=== PATIENT | female | born 1970 | race Caucasian/White ===

== ENCOUNTER 2021-11-01 12:35 | Emergency (ER) | payer OTHER ==
--- OUTSIDE RECORDS SUMMARY | 2021-11-01 12:41 | XMS REPORT | Continuity of Care Document ---
:1970 Author Organization [facility] t Address [address] [place] [address] Care Team Providers Name Role Phone JUN VALLE Primary Care Physician Unavailable Leslie Galvin Attending Clinician Unavailable Handy Valle Attending Clinician Unavailable ALONSO Attending Clinician Unavailable Alonso BYRD Attending Clinician PAUL Attending Clinician Unavailable Paul STAFFORD Attending Clinician YUE Attending Clinician Unavailable Luis Fernando FLORES G Attending Clinician Yue OSBORNE Attending Clinician Júnior BONILLA Attending Clinician Unavailable Júnior Bonilla MD Attending Clinician CELESTE GALVIN Attending Clinician Unavailable Alok Attending Clinician Unavailable Doctor Unassigned, Name Attending Clinician Unavailable Kavon STAFFORD Attending Clinician Unknown Attending Clinician Unavailable UNKNOWN Attending Clinician Unavailable Kevin Attending Clinician Unavailable Mariana JHAVERI Attending Clinician Unavailable Kenneth STAFFORD Attending Clinician Aneharris [employer] Attending Clinician ANENE Attending Clinician Unavailable [facility] Attending Clinician Unavailable Attending Clinician Unavailable RADIOLOGY Attending Clinician Unavailable Valentina GONSALVES Attending Clinician Unavailable Jack Admitting Clinician Unavailable ALONSO Admitting Clinician Unavailable PAUL Admitting Clinician Unavailable YUE Admitting Clinician Unavailable Yue OSBORNE Admitting Clinician Júnior BONILLA Admitting Clinician Unavailable Alok Admitting Clinician Unavailable PHU Admitting Clinician Unavailable Admitting Clinician Unavailable Payers Payer Name Policy Type Policy Number Effective Date Expiration Date Júnior vincent [facility] STAR [id number] 2017 00:00:00 PLUS Problems Condition Condition Condition Status Onset Resolution Last Treating Co mments Source Name Details Category Date Date Treatment Clinician Date Morbid Morbid Disease Active 2020-06 Univers obesity obesity 2-15 [place] of [place] mass index mass index 00 Me dical of of Branch 40.0-49.9 40.0-49.9 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 acute acute 2-14 [place]y of exacerb[place] exacerb[place] Tobacco Tobacco Disease Active Univers abuse abuse 1-23 ity of 00:00: [place] [facility] Branch Lung Lung Disease Active Univers nodule nodule 6-18 ity of 00:00: [place] [facility] Lung Lung Disease Active Univers nodule nodule 6-18 ity of 00:00: [place] [facility] Polyp of Polyp of Disease Active Unive rs colon, colon, 4-17 ity of unspecifie unspecifie 00:[place] of d part of 00 Medi stephanie colon, colon, Branch unspecifie unspecifie d type d type History of History of Disease Active U nivers asthma asthma 4-17 ity of 00:00: [place] 00 Medical Branch History of History of Disease Active U nivers COPD COPD 4-17 ity of 00:00: [place] 00 Medical [place] Bipolar 2 Bipolar 2 Disease Active Uni vers disorder disorder 4-17 ity of 00:00: 00 [facility] Allergies, Adverse Reactions, Alerts Allergy Allergy Status Severity Reaction(s) Onset Inactive Treating Comm ents Source Name Type Date Date Clinician formerly [facility], [facility]–1983 DA Active SV 2020-06 [facility] line 0-30 [place] 00:00: d 00 [facility] DA Active SV Shortness of 2020-06 [facility] line breathe, 0-30 [place] hives 00:00: d 00 [facility] Active Hives Univer s line ty to 1-20 ity of adverse 00:00: [place] reaction 00 [facility] DRUG Active Hives Univers LINE INGREDI 1-20 ity of 00:00: [place] 00 [facility] No Known DA Active U 2008-0 [facility] Contrast 4-09 [place] Allergie 00:00: e s 00 Medical [place] No Known DA Active U 2009-0 [facility] Drug 4-09 [place] Allergie 00:00: e s 00 Medical [place] No Known DA Active U 2009-0 [facility] Other 4-09 [place] Allergie 00:00: e s 00 Medical [place] SHELLFIS DA Active U 2008-0 [facility] H 4-09 [place] 00:[facility]: e [facility] Social History Social Habit Start Date Stop Date Quantity Comments Source History of tobacco Cigarette Smoker University of use [facility] Exposure to Not sure [facility] SARS-CoV-2 (event) [facility] Alcohol intake 2021-09-10 2021-09-10 Current University of 00:00:00 00:00:00 non-drinker of [facility] alcohol Branch (finding) Cigarettes smoked 2017-07-01 2017-07-01 Univers ity of current (pack per 00:00:00 00:00:00 ) - Reported Branch Cigarette 2017-07-01 2017-07-01 University of pack-years 00:00:00 00:00:00 [facility] Tobacco use and 2017-07-01 2017-07-01 Never used Universit y of exposure 00:00:00 00:00:00 [facility] Sex [birth year] At [birth year] Universit y of 00:00:00 00:00:00 [facility] Smoking Status Start Date Stop Date Source Current every day smoker 2017-07-01 00:00:00 Uni versity of [facility] Medications Ordered Filled Start Stop Current Ordering Indication Dosage Frequency Signature Comments Components Source Medication Medication Date Date Medication? Clinician (SIG) Name Name dicyclomine 2021- No 20mg 20 mg, Uni vers (BENTYL) 09-11 Oral, ity of tablet 20 06:00: 05:14 ONCE, 1 [place] mg 00 :00 dose, On Medical 09/11/21 Branch at 0100, MAHNAZ ketorolac 2021- No 30mg 30 mg, Unive rs (TORADOL) 09-11 Slow IV ity of injection 06:00: 05:14 Push, [place] 30 mg 00 :00 ONCE, 1 Medical dose, On Branch 09/11/21 at 0100, MAHNAZ meclizine Yes 25mg Take 25 mg Un lori 25 mg 07-03 by mouth 3 ity of tablet 15:52: (three) [place] 01 times Medical daily as Branch needed. ipratropium 2021- No 3mL 3 mL, Univ ers -albuteroL 07-02 Inhalation it y of (DUONEB) 09:30: 08:26 , ONCE, 1 [place] 0.5 mg-3 00 :00 dose, On Medical mg(2.5 mg Fri Branch base)/3 mL 07/02/21 at nebulizer 0330, MAHNAZ solution 3 mL ipratropium 2021- No 3mL 3 mL, [facility] ers -albuteroL 07-02 Inhalation it y of (DUONEB) 09:30: 08:30 , ONCE, 1 [place] 0.5 mg-3 00 :00 dose, On Medical mg(2.5 mg Fri Branch base)/3 mL 07/02/21 at nebulizer 0330, MAHNAZ solution 3 mL methylpredn 2021- No 125mg 125 mg, U nivers isolone sod 07-02 Slow IV ity of succ 09:30: 08:26 Push, ONCE [place] (SOLU-MEDRO 00 :00 NOW, 1 Medica l L) dose, On Branch injection Fri 125 mg 07/02/21 at 0330, MAHNAZ meclizine 2021-0 Yes 25mg Take 25 mg Un lori 25 mg -21 by mouth 3 ity of tablet 03:48: (three) [place] 48 times Medical daily as Branch needed. famotidine 0 Yes 20mg Take 20 mg U nivers (PEPCID) 20 -21 by mouth 2 it y of mg tablet 02:20: (two) [place] 08 times Medical daily. Branch ipratropium 2021-0 Yes Inhale. Uni vers /albuterol -21 ity of sulfate 02:20: [place] (COMBIVENT [address] [place] [address] RESPIMAT [place] INHALE) famotidine 0 Yes 20mg Take 20 mg U nivers (PEPCID) 20 - by mouth 2 it y of mg tablet 02:20: (two) [place] 08 times Medical daily. Branch ipratropium 0 Yes Inhale. Uni vers /albuterol - ity of sulfate 02:20: [place] ([address] RESPIMAT [place] INHALE) cetirizine 2021- No 10mg Take 10 mg Univers 10 mg -07-02 by mouth ity of tablet 02:17: 00:00 daily. [place] 13 :00 Medical Branch benzonatate 2021-0 Yes [id number] 100mg Take 1 Univers 100 mg 1-21 capsule by ity of capsule 00:00: mouth 3 [place] 00 (three) Medical times [place] daily as needed for Cough. benzonatate 2021-0 Yes [id number] 100mg Take 1 Univers 100 mg 1-21 capsule by ity of capsule 00:00: mouth 3 [place] 00 (three) Medical times [place] daily as needed for Cough. predniSONE 2021-2021- No [id number] 40mg Take 2 Univers 20 mg 1-21 -27 tablets by ity of tablet 00:00: 05:59 mouth [place] 00 :00 daily for Medical 5 days. Branch predniSONE 2020-06- No [id number] 40mg Take 2 Univers 20 mg 2-17 12-23 tablets by ity of tablet 00:00: 05:59 mouth [place] 00 :00 daily for Medical 5 days. Branch famotidine 2020-06 Yes 20mg Take 20 mg U nivers (PEPCID) 20 2-16 by mouth 2 it y of mg tablet 13:45: (two) [place] 28 times Medical daily. Branch cetirizine 2020-06 Yes 10mg Take 10 mg U nivers 10 mg 2-16 by mouth ity of tablet 13:45: daily. [place] 28 Medical Branch ipratropium 2020-06 Yes Inhale. Uni vers /albuterol 2-16 ity of sulfate 13:45: [place] (COMBIVENT 28 Medical RESPIMAT Branch INHALE) amphetamine 2020-06 No 15mg Take 15 mg Univers sulfate 15 2-16 12-16 by mouth 2 it y of mg TbDL 12:18: 00:00 (two) [place] 10 :00 times Medical daily. Branch codeine-gua 2020-06 Yes [id number] 10mL Take 10 mL Univers ifenesin 2-16 by mouth ity of 10-100 mg/5 00:00: every 6 [place] mL oral 00 (six) Medical solution hours as Branch needed for Cough. Indication s: acute pain codeine-gua 2020-06- No [id number] 10mL Take 10 mL Univers ifenesin 2-16 -21 by mouth ity of 10-100 mg/5 00:00: 00:00 every 6 [place] mL oral 00 :00 (six) Medical solution hours as Branch needed for Cough. Indication s: acute pain predniSONE 2020-06 Yes 40mg 40 mg, Unive rs (DELTASONE) 2-15 Oral, ity of tablet 40 15:00: DAILY, [place] mg 00 First dose Medical on Mon Branch 05/26/21 at 0900, Until Discontinu ed, Routine enoxaparin 2020-06 Yes 40mg 40 mg, Unive rs (LOVENOX) 2-15 Subcutaneo ity of injection 15:00: [place], DAILY, [place] 40 mg 00 First dose Medical on Mon Branch 05/26/21 at 0900, Until Discontinu ed, Routine budesonide- 2020-06 Yes 2{puff} 2 Puff, Univers formoteroL 2-15 Inhalation ity of (SYMBICORT) 14:00: , BID, [place] 160-4.5 00 First dose Medica l mcg/actuati on Mon on inhaler 05/26/21 2 Puff at 0800, Until Discontinu ed, Routine codeine-gua 2020-06 Yes 5mL 5 mL, Unive rs ifenesin 2-15 Oral, ity of (ROBITUSSIN 02:50: Q6HPRN, [place] AC) 10-100 23 Starting Medic al mg/5 mL on Mon oral 05/25/21 solution 5 at 2049, mL Until Discontinu ed, Routine, Cough ipratropium 2020-06 Yes 3mL 3 mL, Unive rs -albuteroL 2-15 Inhalation ity of (DUONEB) 02:50: , QIDPRN, [place] 0.5 mg-3 09 Starting Medical mg(2.5 mg on Mon base)/3 mL 05/25/21 nebulizer at 2049, solution 3 Until mL Discontinu ed, Routine, Wheezing, Shortness of Breath, Bronchospa sm, Chest tightness ipratropium 2020-06 Yes 3mL 3 mL, Unive rs -albuteroL 2-15 Inhalation ity of (DUONEB) 02:00: , Q4H, [place] 0.5 mg-3 00 First dose Medic al mg(2.5 mg on Mon base)/3 mL 05/25/21 nebulizer at 1999, solution 3 Until mL Discontinu ed, Routine ondansetron 2020-06 Yes 4mg 4 mg, Slow Univers (ZOFRAN 2-15 IV Push, ity of (PF)) 00:55: Q6HPRN, [place] injection 4 53 Starting Medi stephanie mg on Mon05/25/21 at 1855, Until Discontinu ed, Routine, Nausea and Vomiting (N/V) HYDROcodone 2020-06 Yes 1{tbl} 1 tablet, Univers -acetaminop 2-15 Oral, ity of hen (NORCO) 00:55: Q6HPRN, [place] 10-325 mg 50 Starting Medica l tablet 1 on Mon tablet 05/25/21 at 1855, Until Discontinu ed, Routine, Pain (scale 7-10) traMADoL 2020-06 No 50mg 50 mg, Univer s (ULTRAM) 2-15 12-17 Oral, ity of tablet 50 00:55: 00:54 Q8HPRN, [place] mg 46 :46 Starting Medical on e Branch 05/25/21 at 1855, Until Erma 05/27/21 at 1854, Routine, Pain (scale 4-6) acetaminoph 2020-06 Yes 650mg 650 mg, Un lori en 07-27 Oral, ity of (TYLENOL) 00:55: Q6HPRN, [place] tablet 650 42 Starting Medic al mg on e Branch 05/25/21 at 1855, Until Discontinu ed, Routine, Pain (scale 1-3) magnesium 2020-06- No 2g 2 g, IV Univ ers sulfate in 07-26 Piggyback, it y of water 2 23:15: 00:06 Administer [place] gram/50 mL 00 :00 over 20 Medica l (4 %) Minutes, Branch infusion 2 ONCE, 1 g dose, On e 05/25/21 at 1715, Routine ipratropium 2020-06 No 3mL 3 mL, Univ ers -albuteroL 07-26 Inhalation it y of (DUONEB) 23:00: 22:22 , ONCE, 1 [place] 0.5 mg-3 00 :00 dose, On Medical mg(2.5 mg [facility] Branch base)/3 mL 05/25/21 nebulizer at 1700, solution 3 Routine mL methylpredn 2020-06- No 125mg 125 mg, IV Univers isolone sod 07-26 Piggyback, i ty of succ 23:00: 22:26 ONCE, 1 [place] (SOLU-MEDRO 00 :00 dose, On Medi stephanie L) Tue Branch injection 05/25/21 125 mg at 1700, STAT ipratropium 2020-06 Yes 3mL 3 mL, Unive rs -albuteroL 2-12 Inhalation ity of (DUONEB) 14:00: , QID, [place] 0.5 mg-3 00 First dose Medic al mg(2.5 mg on [place] Branch base)/3 mL 05/23/21 nebulizer at 0800, solution 3 Until mL Discontinu ed, Routine ipratropium 2020-06 Yes 3mL 3 mL, Unive rs -albuteroL 2-12 Inhalation ity of (DUONEB) 14:00: , QID, [place] 0.5 mg-3 00 First dose Medic al mg(2.5 mg on [facility] base)/3 mL 05/23/21 nebulizer at 0800, solution 3 Until mL Discontinu ed, Routine methylpredn 2020-06 No 125mg 125 mg, IV Univers isolone sod 2-12 12-12 Piggyback, i ty of succ 08:30: 07:28 ONCE, 1 [place] (SOLU-MEDRO 00 :00 dose, On Medi stephanie L) [place] Branch injection 05/23/21 125 mg at 0230, STAT predniSONE 2020-06 Yes [id number] 50mg Take 1 Univers 50 mg 2-12 tablet by ity of tablet 00:00: mouth [place] 00 daily. [facility] predniSONE 2020-06- No [id number] 50mg Take 1 Univers 50 mg 2-12 12-16 tablet by ity of tablet 00:00: 00:00 mouth [place] 00 :00 daily. [facility] Branch levoFLOXaci No 750mg 750 mg, U nivers n 03-01 Oral, ONCE ity of (LEVAQUIN) 22:15: 21:10 NOW, 1 [place] tablet 750 00 :00 dose, On Medic al mg [facility] 03/01/21 at 1715, MAHNAZ
Re ason for Anti-Infec tive: Documented Infection< br>Documen genie Infection Site: Respirator y
Durat ion of Therapy: 7 days levoFLOXaci No 750mg 750 mg, U nivers n 03-01 Oral, ONCE ity of (LEVAQUIN) 22:15: 21:10 NOW, 1 [place] tablet 750 00 :00 dose, On Medic al mg [facility] 03/01/21 at 1715, MAHNAZ
Re ason for Anti-Infec tive: Documented Infection< br>Documen genie Infection Site: Respirator y
Durat ion of Therapy: 7 days aspirin No 325mg 325 mg, Unive rs tablet 325 03-01 Oral, ity of mg 19:15: 21:10 ONCE, 1 [place] 00 :00 dose, On Medical [facility] 03/01/21 at 1415, STAT aspirin 2020- No 325mg 325 mg, Unive rs tablet 325 03-01- Oral, ity of mg 19:15: 21:10 ONCE, 1 [place] 00 :00 dose, On Medical Mon Branch 03/01/21 at 1415, STAT albuterol Yes [id number] 2{puff} Inhale 2 Univers 90 9-20 Puffs ity of mcg/actuati 00:00: every 4 [place] on inhaler 00 (four) Medical hours as Branch needed for Wheezing or Shortness of Breath. albuterol Yes [id number] 2{puff} Inhale 2 Univers 90 9-20 Puffs ity of mcg/actuati 00:00: every 4 [place] on inhaler 00 (four) Medical hours as Branch needed for Wheezing or Shortness of Breath. albuterol Yes [id number] 2{puff} Inhale 2 Univers 90 9-20 Puffs ity of mcg/actuati 00:00: every 4 [place] on inhaler 00 (four) Medical hours as Branch needed for Wheezing or Shortness of Breath. albuterol 2020- No [id number] 2{puff} Inhale 2 Univers 90 9-20 12-16 Puffs ity of mcg/actuati 00:00: 00:00 every 4 [place] on inhaler 00 :00 (four) Medical hours as Branch needed for Wheezing or Shortness of Breath. levoFLOXaci 2020- No [id number] 750mg Take 1 Univers n 750 mg 03-01 tablet by ity o f tablet 00:00: 04:59 mouth [place] 00 :00 every 24 Medical (twenty-fo Branch ur) hours for 7 days. levoFLOXaci 2020- No [id number] 750mg Take 1 Univers n 750 mg 03-01 tablet by ity o f tablet 00:00: 04:59 mouth [place] 00 :00 every 24 Medical (twenty-fo Branch ur) hours for 7 days. albuterol-i 2020- No [id number] 1{puff} Inhale 1 Univers pratropium 03-01 09-20 Puff 4 ity of 20-100 00:00: 00:00 (four) [place] mcg/actuati 00 :00 times Medical on inhaler daily. Branch albuterol-i 2020- No [id number] 1{puff} Inhale 1 Univers pratropium 9-20 09-20 Puff 4 ity of 20-100 00:00: 00:00 (four) [place] mcg/actuati 00 :00 times Medical on inhaler daily. Branch methylpredn 2020- No [id number] 125mg Univers isolone sod 02-23 ity of succ 23:30: 23:26 [place] (SOLU-MEDRO 00 :00 Medical L) Branch injection 125 mg methylpredn 2020- No [id number] 125mg 125 mg, Univers isolone sod 02-23 Intramuscu i ty of succ 23:30: 23:26 lar, ONCE [place] (SOLU-MEDRO 00 :00 NOW, 1 Medica l L) dose, On Branch injection Tue 125 mg 02/23/21 at 1830, Routine methylpredn No [id number] 125mg Univers isolone sod 02-23 ity of succ 23:30: 23:26 [place] (SOLU-MEDRO 00 :00 Medical L) Branch injection 125 mg methylpredn No [id number] 125mg 125 mg, Univers isolone sod 02-23 Intramuscu i ty of succ 23:30: 23:26 lar, ONCE [place] (SOLU-MEDRO 00 :00 NOW, 1 Medica l L) dose, On Branch injection Tue 125 mg 02/23/21 at 1830, Routine albuterol Yes [id number] 2{puff} Inhale 2 Univers 90 9-14 Puffs ity of mcg/actuati 00:00: every 6 [place] on inhaler 00 (six) Medical hours as Branch needed for Wheezing. Please dispense generic brand albuterol Yes [id number] 2{puff} Inhale 2 Univers 90 9-14 Puffs ity of mcg/actuati 00:00: every 6 [place] on inhaler 00 (six) Medical hours as Branch needed for Wheezing. Please dispense generic brand albuterol Yes [id number] 2{puff} Inhale 2 Univers 90 9-14 Puffs ity of mcg/actuati 00:00: every 6 [place] on inhaler 00 (six) Medical hours as Branch needed for Wheezing. Please dispense generic brand albuterol Yes [id number] 2{puff} Inhale 2 Univers 90 9-14 Puffs ity of mcg/actuati 00:00: every 6 [place] on inhaler 00 (six) Medical hours as Branch needed for Wheezing. Please dispense generic brand albuterol Yes [id number] 2{puff} Inhale 2 Univers 90 9-14 Puffs ity of mcg/actuati 00:00: every 6 [place] on inhaler 00 (six) Medical hours as Branch needed for Wheezing. Please dispense generic brand albuterol Yes [id number] 2{puff} Inhale 2 Univers 90 9-14 Puffs ity of mcg/actuati 00:00: every 6 [place] on inhaler 00 (six) Medical hours as Branch needed for Wheezing. Please dispense generic brand albuterol Yes [id number] 2{puff} Inhale 2 Univers 90 9-14 Puffs ity of mcg/actuati 00:00: every 6 [place] on inhaler 00 (six) Medical hours as Branch needed for Wheezing. Please dispense generic brand albuterol 2020- No [id number] 2{puff} Inhale 2 Univers 90 9-14 12-16 Puffs ity of mcg/actuati 00:00: 00:00 every 6 [place] on inhaler 00 :00 (six) Medical hours as Branch needed for Wheezing. Please dispense generic brand benzonatate 2020- No [id number] 100mg Take 1 Univers (TESSALON 9-14 09-25 capsule by itrob of STACEY) 100 00:00: 04:59 mouth 3 [place] mg capsule 00 :00 (three) Medica l times Branch daily as needed for Cough for up to 10 days. benzonatate 2020- No [id number] 100mg Take 1 Univers (TESSALON 9-14 09-25 capsule by itrob of STACEY) 100 00:00: 04:59 mouth 3 [place] mg capsule 00 :00 (three) Medica l times Branch daily as needed for Cough for up to 10 days. benzonatate 2020- No [id number] 100mg Take 1 Univers (TESSALON 9-14 -25 capsule by ity of STACEY) 100 00:00: 04:59 mouth 3 [place] mg capsule 00 :00 (three) Medica l times Branch daily as needed for Cough for up to 10 days. benzonatate 2020- No [id number] 100mg Take 1 Univers (TESSALON 9-14 -25 capsule by ity of ANTOINE) 100 00:00: 04:59 mouth 3 [place] mg capsule 00 :00 (three) Medica l times Branch daily as needed for Cough for up to 10 days. benzonatate 2020- No [id number] 100mg Take 1 Univers (TESSALON 9-14 -25 capsule by itrob of STACEY) 100 00:00: 04:59 mouth 3 [place] mg capsule 00 :00 (three) Medica l times Branch daily as needed for Cough for up to 10 days. benzonatate No [id number] 100mg Take 1 Univers (TESSALON 9-14 -25 capsule by itrob of STACEY) 100 00:00: 04:59 mouth 3 [place] mg capsule 00 :00 (three) Medica l times Branch daily as needed for Cough for up to 10 days. predniSONE 2020-2020- No [id number] 20mg Take 1 Univers 20 mg 9-14 -22 tablet by ity of tablet 00:00: 04:59 mouth [place] 00 :00 daily for Medical 7 days. Branch predniSONE 2020- No [id number] 20mg Take 1 Univers 20 mg 9-14 -22 tablet by ity of tablet 00:00: 04:59 mouth [place] 00 :00 daily for Medical 7 days. Branch predniSONE 2020- No [id number] 20mg Take 1 Univers 20 mg 9-14 -22 tablet by ity of tablet 00:00: 04:59 mouth [place] 00 :00 daily for Medical 7 days. Branch predniSONE 2020- No [id number] 20mg Take 1 Univers 20 mg 9-14 -22 tablet by ity of tablet 00:00: 04:59 mouth [place] 00 :00 daily for Medical 7 days. Branch predniSONE 2020- No [id number] 20mg Take 1 Univers 20 mg 02-23 tablet by ity of tablet 00:00: 04:59 mouth [place] 00 :00 daily for Medical 7 days. Branch predniSONE 2020- No [id number] 20mg Take 1 Univers 20 mg 02-23 tablet by ity of tablet 00:00: 04:59 mouth [place] 00 :00 daily for Medical 7 days. Branch azithromyci 2020- No [id number] 250mg Take 1 Univers n 02-23 tablet by ity of (ZITHROMAX 00:00: 04:59 mouth [place] Z-ANITRA) 250 00 :00 SEE-INSTRU Med ical mg tablet CTIONS for Bran ch 5 days. Please dispense a z pack azithromyci No [id number] 250mg Take 1 Univers n 02-23 tablet by ity of (ZITHROMAX 00:00: 04:59 mouth [place] Z-ANITRA) 250 00 :00 SEE-INSTRU Med ical mg tablet CTIONS for Bran ch 5 days. Please dispense a z pack cephALEXin 2019- No [id number] 500mg Take 1 Univers (KEFLEX) 03-08 capsule by ity of 500 mg 00:00: 04:59 mouth 4 [place] capsule 00 :00 (four) Medical times [place] daily for 5 days. levoFLOXaci 2019- No [id number] 750mg Take 1 Univers n 03-08 tablet by ity of (LEVAQUIN) 00:00: 04:59 mouth [place] 750 mg 00 :00 every 24 Medical tablet (twenty-fo Branch ur) hours for 5 days. cephALEXin 2019- No [id number] 500mg Take 1 Univers (KEFLEX) 03-08 capsule by ity of 500 mg 00:00: 04:59 mouth 4 [place] capsule 00 :00 (four) Medical times [place] daily for 5 days. levoFLOXaci 2019- No [id number] 750mg Take 1 Univers n 9-27 10-03 tablet by ity of (LEVAQUIN) 00:00: 04:59 mouth [place] 750 mg 00 :00 every 24 Medical tablet (twenty-fo Branch ur) hours for 5 days. bromphenira 2019- No [id number] 5mL Take 5 mL Univers mine-pseudo 09-15-17 by mouth 4 i ty of ephedrine-D 00:00: 04:59 (four) [place] M (BROMFED 00 :00 times Medical DM) 2-30-10 daily as Bran ch mg/5 mL needed for syrup Cough for up to 10 days. bromphenira 2019- No [id number] 5mL Take 5 mL Univers mine-pseudo 09-1517 by mouth 4 i ty of ephedrine-D 00:00: 04:59 (four) [place] M (BROMFED 00 :00 times Medical DM) 2-30-10 daily as Bran ch mg/5 mL needed for syrup Cough for up to 10 days. bromphenira 2019-2019- No [id number] 5mL Take 5 mL Univers mine-pseudo 09-1517 by mouth 4 i ty of ephedrine-D 00:00: 04:59 (four) [place] M (BROMFED 00 :00 times Medical DM) 2-30-10 daily as Bran ch mg/5 mL needed for syrup Cough for up to 10 days. amoxicillin No [id number] 1{tbl} Take 1 Univers -clavulanat -11 13-14 tablet by it y of e 00:00: 04:59 mouth 2 [place] (AUGMENTIN) 00 :00 (two) Medical 875-125 mg times Branch per tablet daily for 7 days. amoxicillin No [id number] 1{tbl} Take 1 Univers -clavulanat -11 13-14 tablet by it y of e 00:00: 04:59 mouth 2 [place] (AUGMENTIN) 00 :00 (two) Medical 875-125 mg times Branch per tablet daily for 7 days. amoxicillin No [id number] 1{tbl} Take 1 Univers -clavulanat 4-11 13-14 tablet by it y of e 00:00: 04:59 mouth 2 [place] (AUGMENTIN) 00 :00 (two) Medical 875-125 mg times Branch per tablet daily for 7 days. TRELEGY 2020-0 Yes Univers ELLIPTA 3-10 ity of 100-62.5-25 00:00: [place] mcg DsDv 00 Medical Branch TRELEGY 2020-0 Yes Univers ELLIPTA 3-10 ity of 100-62.5-25 00:00: [place] mcg DsDv 00 Medical Branch TRELEGY 2020-0 Yes Univers ELLIPTA 3-10 ity of 100-62.5-25 00:00: [place] mcg DsDv 00 Medical Branch TRELEGY 2020-0 Yes Univers ELLIPTA 3-10 ity of 100-62.5-25 00:00: [place] mcg DsDv 00 Medical Branch TRELEGY 2020-0 Yes Univers ELLIPTA 3-10 ity of 100-62.5-25 00:00: [place] mcg DsDv 00 Medical Branch TRELEGY 2020-0 Yes Univers ELLIPTA 3-10 ity of 100-62.5-25 00:00: [place] mcg DsDv 00 Medical Branch TRELEGY 2020-0 Yes Univers ELLIPTA 3-10 ity of 100-62.5-25 00:00: [place] mcg DsDv 00 Medical Branch TRELEGY 2020-0 Yes Univers ELLIPTA 3-10 ity of 100-62.5-25 00:00: [place] mcg DsDv 00 Medical Branch TRELEGY 2020-0 Yes Univers ELLIPTA 3-10 ity of 100-62.5-25 00:00: [place] mcg DsDv 00 Medical Branch TRELEGY 2020-0 Yes Univers ELLIPTA 3-10 ity of 100-62.5-25 00:00: [place] mcg DsDv 00 Medical Branch TRELEGY 2020-0 Yes Univers ELLIPTA 3-10 ity of 100-62.5-25 00:00: [place] mcg DsDv 00 Medical Branch TRELEGY 2020-0 Yes Univers ELLIPTA 3-10 ity of 100-62.5-25 00:00: [place] mcg DsDv 00 Medical Branch TRELEGY 2020-0 Yes Univers ELLIPTA 3-10 ity of 100-62.5-25 00:00: [place] mcg DsDv 00 Medical Branch TRELEGY 2020-0 2021- No Univers ELLIPTA 3-10 01-21 ity of 100-62.5-25 00:00: 00:00 [place] mcg DsDv 00 :00 Medical Branch montelukast 2020-0 Yes Univer s 10 mg 2-12 ity of tablet 00:00: [place] [facility] montelukast 2020-0 Yes Univer s 10 mg 2-12 ity of tablet 00:00: [place] [address] [facility] montelukast 2020-0 Yes Univer s 10 mg 2-12 ity of tablet 00:00: [place] [address] [facility] montelukast 2020-0 Yes Univer s 10 mg 2-12 ity of tablet 00:00: [place] [address] [facility] montelukast 2020-0 Yes Univer s 10 mg 2-12 ity of tablet 00:00: [place] [address] [facility] montelukast 2020-0 Yes Univer s 10 mg 2-12 ity of tablet 00:00: [place] [address] Medical [place] montelukast 2019-0 Yes Univer s 10 mg 2-12 ity of tablet 00:00: [address] montelukast 2019-0 Yes Univer s 10 mg 2-12 ity of tablet 00:00: [address] montelukast 2020-0 Yes Univer s 10 mg 2-12 ity of tablet 00:00: [address] montelukast 2020-0 Yes Univer s 10 mg 2-12 ity of tablet 00:00: [place] [address] Medical [place] montelukast 2020-0 Yes Univer s 10 mg 2-12 ity of tablet 00:00: [address] montelukast 2019-0 Yes 10mg Take 10 mg [facility] 10 mg 2-12 by mouth ity of tablet 00:00: daily. [address] montelukast 2020-0 Yes 10mg Take 10 mg [facility] 10 mg 2-12 by mouth ity of tablet 00:00: daily. [address] montelukast 2020-0 Yes 10mg Take 10 mg [facility] 10 mg 2-12 by mouth ity of tablet 00:00: daily. [address] montelukast 2019-0 Yes Univer s 10 mg 2-12 ity of tablet 00:00: [address] buPROPion 2018-0 Yes [id number] 150mg Take 1 U nivers SR 9-26 tablet by ity of (WELLBUTRIN 00:00: mouth 2 [place] SR) 150 mg 00 (two) Medical SR tablet times Branch daily. naproxen 2018-0 Yes [id number] 550mg Take 1 [facility] sodium 9-26 9106 tablet by ity of (ANAPROX 00:00: mouth 2 [place] DS) 550 mg 00 (two) Medical tablet times Branch daily with meals. buPROPion 2018-0 Yes [id number] 150mg Take 1 U nivers SR 9-26 tablet by ity of (WELLBUTRIN 00:00: mouth 2 [place] SR) 150 mg 00 (two) Medical SR tablet times Branch daily. naproxen Yes [id number] 550mg Take 1 [facility] sodium 9-26 9106 tablet by ity of (ANAPROX 00:00: mouth 2 [place] DS) 550 mg 00 (two) Medical tablet times Branch daily with meals. methylPREDN Yes [id number] 84mg Take 21 [facility] ISolone 9-26 9106 tablets by ity of (MEDROL, 00:00: mouth [place] ANITRA,) 4 mg 00 SEE-INSTRU Med ical tablets CTIONS. Branch follow package directions buPROPion 2018- Yes [id number] 150mg Take 1 U nivers SR 9-26 tablet by ity of (WELLBUTRIN 00:00: mouth 2 [place] SR) 150 mg 00 (two) Medical SR tablet times Branch daily. naproxen Yes [id number] 550mg Take 1 [facility] sodium 9-26 9106 tablet by ity of (ANAPROX 00:00: mouth 2 [place] DS) 550 mg 00 (two) Medical tablet times Branch daily with meals. methylPREDN 2018- Yes [id number] 84mg Take 21 [facility] ISolone 9-26 9106 tablets by ity of (MEDROL, 00:00: mouth [place] ANITRA,) 4 mg 00 SEE-INSTRU Med ical tablets CTIONS. Branch follow package directions buPROPion 2018-0 Yes [id number] 150mg Take 1 U nivers SR 9-26 tablet by ity of (WELLBUTRIN 00:00: mouth 2 [place] SR) 150 mg 00 (two) Medical SR tablet times Branch daily. naproxen 2018-0 Yes [id number] 550mg Take 1 [facility] sodium 9-26 9106 tablet by ity of (ANAPROX 00:00: mouth 2 [place] DS) 550 mg 00 (two) Medical tablet times Branch daily with meals. methylPREDN 2018-0 Yes [id number] 84mg Take 21 [facility] ISolone 9-26 9106 tablets by ity of (MEDROL, 00:00: mouth [place] ANITRA,) 4 mg 00 SEE-INSTRU Med ical tablets CTIONS. Branch follow package directions buPROPion 2018-0 Yes [id number] 150mg Take 1 U nivers SR 9-26 tablet by ity of (WELLBUTRIN 00:00: mouth 2 [place] SR) 150 mg 00 (two) Medical SR tablet times Branch daily. naproxen Yes [id number] 550mg Take 1 [facility] sodium 9-26 9106 tablet by ity of (ANAPROX 00:00: mouth 2 [place] DS) 550 mg 00 (two) Medical tablet times Branch daily with meals. methylPREDN Yes [id number] 84mg Take 21 [facility] ISolone 9-26 9106 tablets by ity of (MEDROL, 00:00: mouth [place] ANITRA,) 4 mg 00 SEE-INSTRU Med ical tablets CTIONS. Branch follow package directions buPROPion Yes [id number] 150mg Take 1 U nivers SR 9-26 tablet by ity of (WELLBUTRIN 00:00: mouth 2 [place] SR) 150 mg 00 (two) Medical SR tablet times Branch daily. naproxen Yes [id number] 550mg Take 1 [facility] sodium 9-26 9106 tablet by ity of (ANAPROX 00:00: mouth 2 [place] DS) 550 mg 00 (two) Medical tablet times Branch daily with meals. methylPREDN 2018- Yes [id number] 84mg Take 21 [facility] ISolone 9-26 9106 tablets by ity of (MEDROL, 00:00: mouth [place] ANITRA,) 4 mg 00 SEE-INSTRU Med ical tablets CTIONS. Branch follow package directions buPROPion 2018-0 Yes [id number] 150mg Take 1 U nivers SR 9-26 tablet by ity of (WELLBUTRIN 00:00: mouth 2 [place] SR) 150 mg 00 (two) Medical SR tablet times Branch daily. naproxen 0 Yes [id number] 550mg Take 1 [facility] sodium 9-26 9106 tablet by ity of (ANAPROX 00:00: mouth 2 [place] DS) 550 mg 00 (two) Medical tablet times Branch daily with meals. methylPREDN 2018-0 Yes [id number] 84mg Take 21 [facility] ISolone 9-26 9106 tablets by ity of (MEDROL, 00:00: mouth [place] ANITRA,) 4 mg 00 SEE-INSTRU Med ical tablets CTIONS. Branch follow package directions buPROPion Yes [id number] 150mg Take 1 U nivers SR 9-26 tablet by ity of (WELLBUTRIN 00:00: mouth 2 [place] SR) 150 mg 00 (two) Medical SR tablet times Branch daily. naproxen Yes [id number] 550mg Take 1 [facility] sodium 9-26 9106 tablet by ity of (ANAPROX 00:00: mouth 2 [place] DS) 550 mg 00 (two) Medical tablet times Branch daily with meals. buPROPion Yes [id number] 150mg Take 1 U nivers SR 9-26 tablet by ity of (WELLBUTRIN 00:00: mouth 2 [place] SR) 150 mg 00 (two) Medical SR tablet times Branch daily. naproxen Yes [id number] 550mg Take 1 [facility] sodium 9-26 9106 tablet by ity of (ANAPROX 00:00: mouth 2 [place] DS) 550 mg 00 (two) Medical tablet times Branch daily with meals. buPROPion Yes [id number] 150mg Take 1 U nivers SR 9-26 tablet by ity of (WELLBUTRIN 00:00: mouth 2 [place] SR) 150 mg 00 (two) Medical SR tablet times Branch daily. naproxen Yes [id number] 550mg Take 1 [facility] sodium 9-26 9106 tablet by ity of (ANAPROX 00:00: mouth 2 [place] DS) 550 mg 00 (two) Medical tablet times Branch daily with meals. buPROPion Yes [id number] 150mg Take 1 U nivers SR 9-26 tablet by ity of (WELLBUTRIN 00:00: mouth 2 [place] SR) 150 mg 00 (two) Medical SR tablet times Branch daily. naproxen Yes [id number] 550mg Take 1 U nivers sodium 9-26 tablet by ity of (ANAPROX 00:00: mouth 2 [place] DS) 550 mg 00 (two) Medical tablet times Branch daily with meals. buPROPion Yes [id number] 150mg Take 1 U nivers SR 9-26 tablet by ity of (WELLBUTRIN 00:00: mouth 2 [place] SR) 150 mg 00 (two) Medical SR tablet times Branch daily. naproxen Yes [id number] 550mg Take 1 [facility] sodium 9-26 9106 tablet by ity of (ANAPROX 00:00: mouth 2 [place] DS) 550 mg 00 (two) Medical tablet times Branch daily with meals. buPROPion Yes [id number] 150mg Take 1 U nivers SR 9-26 tablet by ity of (WELLBUTRIN 00:00: mouth 2 [place] SR) 150 mg 00 (two) Medical SR tablet times Branch daily. buPROPion Yes [id number] 150mg Take 1 U nivers SR 9-26 tablet by ity of (WELLBUTRIN 00:00: mouth 2 [place] SR) 150 mg 00 (two) Medical SR tablet times Branch daily. naproxen Yes [id number] 550mg Take 1 [facility] sodium 9-26 9106 tablet by ity of (ANAPROX 00:00: mouth 2 [place] DS) 550 mg 00 (two) Medical tablet times Branch daily with meals. buPROPion 2021- No [id number] 150mg Take 1 [facility] SR 9-07 07-21 tablet by ity of (WELLBUTRIN 00:00: 00:00 mouth 2 [place] SR) 150 mg 00 :00 (two) Medical SR tablet times Branch daily. naproxen 2020- No [id number] 550mg Take 1 [facility] sodium 9- 12-14 tablet by ity of (ANAPROX 00:00: 00:00 mouth 2 [place] DS) 550 mg 00 :00 (two) Medical tablet times Branch daily with meals. methylPREDN 2020- No [id number] 84mg Take 21 [facility] ISolone 03-07-14 9106 tablets by ity o f (MEDROL, 00:00: 00:00 mouth [place] ANITRA,) 4 mg 00 :00 SEE-INSTRU Med ical tablets CTIONS. Branch follow package directions methylPREDN 2020- No [id number] 84mg Take 21 [facility] ISolone 03-07 09-14 9106 tablets by ity o f (MEDROL, 00:00: 00:00 mouth [place] ANITRA,) 4 mg 00 :00 SEE-INSTRU Med ical tablets CTIONS. Branch follow package directions loratadine- Yes [id number] 1{tbl} Take 1 [facility] pseudoephed 4-17 tablet by ity of rine 00:00: mouth [place] (CLARITIN-D 00 daily. Medica l 24 HOUR) Branch 10-240 mg per 24 hr tablet azithromyci 2018-0 Yes [id number] 250mg Take 1 [facility] n 4-17 tablet by ity of (ZITHROMAX 00:00: mouth [place] Z-ANITRA) 250 00 SEE-INSTRU Med ical mg tablet CTIONS. Branch Take 500 mg day 1, then 250 mg days 2 to 5. dextrometho 2018- Yes [id number] 10mL Take 10 mL [facility] rphan-guaif 4-17 by mouth ity of enesin 00:00: every 6 [place] 10-100 mg/5 00 (six) Medical mL solution hours as Bran ch needed for Cough. loratadine- Yes [id number] 1{tbl} Take 1 [facility] pseudoephed 4-17 tablet by ity of rine 00:00: mouth [place] (CLARITIN-D 00 daily. Medica l 24 HOUR) Branch 10-240 mg per 24 hr tablet azithromyci 2018- Yes [id number] 250mg Take 1 [facility] n 4-17 tablet by ity of (ZITHROMAX 00:00: mouth [place] Z-ANITRA) 250 00 SEE-INSTRU Med ical mg tablet CTIONS. Branch Take 500 mg day 1, then 250 mg days 2 to 5. loratadine- Yes [id number] 1{tbl} Take 1 [facility] pseudoephed 4-17 tablet by ity of rine 00:00: mouth [place] (CLARITIN-D 00 daily. Medica l 24 HOUR) Branch 10-240 mg per 24 hr tablet azithromyci 2018- Yes [id number] 250mg Take 1 [facility] n 4-17 tablet by ity of (ZITHROMAX 00:00: mouth [place] Z-ANITRA) 250 00 SEE-INSTRU Med ical mg tablet CTIONS. Branch Take 500 mg day 1, then 250 mg days 2 to 5. loratadine- Yes [id number] 1{tbl} Take 1 [facility] pseudoephed 4-17 tablet by ity of rine 00:00: mouth [place] (CLARITIN-D 00 daily. Medica l 24 HOUR) Branch 10-240 mg per 24 hr tablet azithromyci 2019-0 Yes [id number] 250mg Take 1 [facility] n 4-17 tablet by ity of (ZITHROMAX 00:00: mouth [place] Z-ANITRA) 250 00 SEE-INSTRU Med ical mg tablet CTIONS. Branch Take 500 mg day 1, then 250 mg days 2 to 5. loratadine- 2019- Yes [id number] 1{tbl} Take 1 [facility] pseudoephed 4-17 tablet by ity of rine 00:00: mouth [place] (CLARITIN-D 00 daily. Medica l 24 HOUR) Branch 10-240 mg per 24 hr tablet loratadine- 2018- Yes [id number] 1{tbl} Take 1 [facility] pseudoephed 4-17 tablet by ity of rine 00:00: mouth [place] (CLARITIN-D 00 daily. Medica l 24 HOUR) Branch 10-240 mg per 24 hr tablet loratadine- 2018- Yes [id number] 1{tbl} Take 1 [facility] pseudoephed 4-17 tablet by ity of rine 00:00: mouth [place] (CLARITIN-D 00 daily. Medica l 24 HOUR) Branch 10-240 mg per 24 hr tablet loratadine- 2018- Yes [id number] 1{tbl} Take 1 [facility] pseudoephed 4-17 tablet by ity of rine 00:00: mouth [place] (CLARITIN-D 00 daily. Medica l 24 HOUR) Branch 10-240 mg per 24 hr tablet loratadine- 2019-0 Yes [id number] 1{tbl} Take 1 [facility] pseudoephed 4-17 tablet by ity of rine 00:00: mouth [place] (CLARITIN-D 00 daily. Medica l 24 HOUR) Branch 10-240 mg per 24 hr tablet loratadine- 2019-0 Yes [id number] 1{tbl} Take 1 [facility] pseudoephed 4-17 tablet by ity of rine 00:00: mouth [place] (CLARITIN-D 00 daily. Medica l 24 HOUR) Branch 10-240 mg per 24 hr tablet loratadine- 2019-0 Yes [id number] 1{tbl} Take 1 [facility] pseudoephed 4-17 tablet by ity of rine 00:00: mouth [place] (CLARITIN-D 00 daily. Medica l 24 HOUR) Branch 10-240 mg per 24 hr tablet loratadine- 2018- Yes [id number] 1{tbl} Take 1 [facility] pseudoephed 4-17 tablet by ity of rine 00:00: mouth [place] (CLARITIN-D 00 daily. Medica l 24 HOUR) Branch 10-240 mg per 24 hr tablet loratadine- Yes [id number] 1{tbl} Take 1 [facility] pseudoephed 4-17 tablet by ity of rine 00:00: mouth [place] (CLARITIN-D 00 daily. Medica l 24 HOUR) Branch 10-240 mg per 24 hr tablet loratadine- 2020- No [id number] 1{tbl} Take 1 [facility] pseudoephed 4-17 12-14 tablet by it y of rine 00:00: 00:00 mouth [place] (CLARITIN-D 00 :00 daily. Medica l 24 HOUR) Branch 10-240 mg per 24 hr tablet azithromyci 2020- No [id number] 250mg Take 1 [facility] n 4-17 -27 tablet by ity of (ZITHROMAX 00:00: 00:00 mouth [place] Z-ANITRA) 250 00 :00 SEE-INSTRU Med ical mg tablet CTIONS. Branch Take 500 mg day 1, then 250 mg days 2 to 5. dextrometho 2020- No [id number] 10mL Take 10 mL [facility] rphan-guaif 4-17 04-06 by mouth ity of enesin 00:00: 00:00 every 6 [place] 10-100 mg/5 00 :00 (six) Medical mL solution hours as Bran ch needed for Cough. levoFLOXaci Yes [id number] 500mg Take 1 Univers n 2-05 tablet by ity of (LEVAQUIN) 00:00: mouth [place] 500 mg 00 every 24 Medical tablet (twenty-fo Branch ur) hours. levoFLOXaci Yes [id number] 500mg Take 1 [facility] n 2-05 tablet by ity of (LEVAQUIN) 00:00: mouth [place] 500 mg 00 every 24 Medical tablet (twenty-fo Branch ur) hours. levoFLOXaci Yes [id number] 500mg Take 1 [facility] n 2-05 tablet by ity of (LEVAQUIN) 00:00: mouth [place] 500 mg 00 every 24 Medical tablet (twenty-fo Branch ur) hours. levoFLOXaci Yes [id number] 500mg Take 1 [facility] n 2-05 tablet by ity of (LEVAQUIN) 00:00: mouth [place] 500 mg 00 every 24 Medical tablet ([facility] ur) hours. levoFLOXaci Yes [id number] 500mg Take 1 Univers n 2-05 tablet by ity of (LEVAQUIN) 00:00: mouth [place] 500 mg 00 every 24 Medical tablet ([facility] ur) hours. levoFLOXaci Yes [id number] 500mg Take 1 Univers n 2-05 tablet by ity of (LEVAQUIN) 00:00: mouth [place] 500 mg 00 every 24 Medical tablet ([facility] ur) hours. levoFLOXaci 2020- No [id number] 500mg Take 1 Univers n 2-05 09-14 tablet by ity of (LEVAQUIN) 00:00: 00:00 mouth [place] 500 mg 00 :00 every 24 Medical tablet ([facility] ur) hours. levoFLOXaci 2020- No [id number] 500mg Take 1 Univers n 2-05 09-14 tablet by ity of (LEVAQUIN) 00:00: 00:00 mouth [place] 500 mg 00 :00 every 24 Medical tablet ([facility] ur) hours. azithromyci 2018- Yes [id number] 500mg Take 1 Univers n 500 mg 1-25 tablet by ity of tablet 00:00: mouth [place] 00 daily. Medical Branch azithromyci 2018-0 Yes [id number] 500mg Take 1 Univers n 500 mg 1-25 tablet by ity of tablet 00:00: mouth [place] 00 daily. [facility] Branch azithromyci 2018-0 Yes [id number] 500mg Take 1 Univers n 500 mg 1-25 tablet by ity of tablet 00:00: mouth [place] 00 daily. Medical Branch azithromyci 2018-0 Yes [id number] 500mg Take 1 Univers n 500 mg 1-25 tablet by ity of tablet 00:00: mouth [place] 00 daily. [facility] Branch azithromyci 2018-0 Yes [id number] 500mg Take 1 Univers n 500 mg 1-25 tablet by ity of tablet 00:00: mouth [place] 00 daily. [facility] Branch azithromyci 2019-0 Yes [id number] 500mg Take 1 Univers n 500 mg 1-25 tablet by ity of tablet 00:00: mouth [place] 00 daily. Medical Branch azithromyci 2018-2020- No [id number] 500mg Take 1 Univers n 500 mg 1-25 -14 tablet by ity o f tablet 00:00: 00:00 mouth [place] 00 :00 daily. Medical Branch azithromyci 2018-2020- No [id number] 500mg Take 1 Univers n 500 mg 1-25 -14 tablet by ity o f tablet 00:00: 00:00 mouth [place] 00 :00 daily. Medical Branch nystatin 2019- Yes [id number] Take 3 mL [facility] 100,000 1-23 by mouth 4 ity of unit/mL 00:00: (four) [place] suspension 00 times Medical daily. 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 Branch Scrub around mouth inhalationa 2019-0 Yes [id number] May U nivers l spacing 1-23 substitute ity of device 00:00: other [place] 00 spacing layboy tender Branch predniSONE 2019-0 Yes [id number] 2 tabs now Univers 20 mg 1-23 and 2 tabs ity of tablet 00:00: early each [place] morning Medical for total Branch of 5 doses. nystatin 2019- Yes [id number] Take 3 mL [facility] 100,000 1-23 by mouth 4 ity of unit/mL 00:00: (four) [place] suspension 00 times Medical daily. Branch Scrub around mouth inhalationa 2019-0 Yes [id number] May U nivers l spacing 1-23 substitute ity of device 00:00: other [place] 00 spacing layboy tender Branch predniSONE 2019-0 Yes [id number] 2 tabs now [facility] 20 mg 1-23 and 2 tabs ity of tablet 00:00: early each [place] 00 morning Medical for total Branch of 5 doses. nystatin 2019- Yes [id number] Take 3 mL [facility] 100,000 1-23 by mouth 4 ity of unit/mL 00:00: (four) [place] suspension 00 times Medical daily. Branch Scrub around mouth inhalationa 2019-0 Yes [id number] May U nivers l spacing 1-23 substitute ity of device 00:00: other [place] 00 spacing layboy tender Branch predniSONE 2019-0 Yes [id number] 2 tabs now [facility] 20 mg 1-23 and 2 tabs ity of tablet 00:00: early each morning Medical for total Branch of 5 doses. nystatin 2019-0 Yes [id number] Take 3 mL [facility] 100,000 1-23 by mouth 4 ity of unit/mL 00:00: (four) [place] suspension 00 times Medical daily. Branch Scrub around mouth inhalationa 2019-0 Yes [id number] May U nivers l spacing 1-23 substitute ity of device 00:00: other 00 spacing [place] tender Branch predniSONE 2019-0 Yes [id number] 2 tabs now [facility] 20 mg 1-23 and 2 tabs ity of tablet 00:00: early each [place] morning Medical for total Branch of 5 doses. nystatin 2019-0 Yes [id number] Take 3 mL [facility] 100,000 1-23 by mouth 4 ity of unit/mL 00:00: (four) [place] suspension 00 times Medical daily. Branch Scrub around mouth inhalationa 2019-0 Yes [id number] May U nivers l spacing 1-23 substitute ity of device 00:00: other 00 spacing [place] tender Branch predniSONE 2019-0 Yes [id number] 2 tabs now Univers 20 mg 1-23 and 2 tabs ity of tablet 00:00: early each [place] morning Medical for total Branch of 5 doses. nystatin 2019-0 Yes [id number] Take 3 mL [facility] 100,000 1-23 by mouth 4 ity of unit/mL 00:00: (four) [place] suspension 00 times Medical daily. Branch Scrub around mouth inhalationa 2019-0 Yes [id number] May U nivers l spacing 1-23 substitute ity of device 00:00: other 00 spacing [place]boy tender Branch predniSONE 2019-0 Yes [id number] 2 tabs now [facility] 20 mg 1-23 and 2 tabs ity of tablet 00:00: early each morning Medical for total Branch of 5 doses. nystatin 2019-0 Yes [id number] Take 3 mL [facility] 100,000 1-23 by mouth 4 ity of unit/mL 00:00: (four) [place] suspension 00 times Medical daily. Branch Scrub around mouth inhalationa 2019-0 Yes [id number] May U nivers l spacing 1-23 substitute ity of device 00:00: other [place] 00 spacing layboy tender Branch nystatin 2019-0 Yes [id number] Take 3 mL [facility] 100,000 1-23 by mouth 4 ity of unit/mL 00:00: (four) [place] suspension 00 times Medical daily. Branch Scrub around mouth inhalationa 2019-0 Yes [id number] May U nivers l spacing 1-23 substitute ity of device 00:00: other [place] 00 spacing layboy tender Branch nystatin 2019-0 Yes [id number] Take 3 mL [facility] 100,000 1-23 by mouth 4 ity of unit/mL 00:00: (four) [place] suspension 00 times Medical daily. Branch Scrub around mouth inhalationa 2019-0 Yes [id number] May U nivers l spacing 1-23 substitute ity of device 00:00: other [place] 00 spacing layboy tender Branch nystatin 2019-0 Yes [id number] Take 3 mL [facility] 100,000 1-23 by mouth 4 ity of unit/mL 00:00: (four) [place] suspension 00 times Medical daily. Branch Scrub around mouth inhalationa 2019-0 Yes [id number] May U nivers l spacing 1-23 substitute ity of device 00:00: other [place] spacing layboy tender Branch nystatin 2019-0 Yes [id number] Take 3 mL [facility] 100,000 1-23 by mouth 4 ity of unit/mL 00:00: (four) [place] suspension 00 times Medical daily. Branch Scrub around mouth inhalationa 2019-0 Yes [id number] May U nivers l spacing 1-23 substitute ity of device 00:00: other spacing [place] tender Branch inhalationa 2019-0 Yes [id number] May U nivers l spacing 1-23 substitute ity of device 00:00: other [place] spacing layboy tender Branch inhalationa 2019-0 Yes [id number] May U nivers l spacing 1-23 substitute ity of device 00:00: other spacing [place] tender Branch inhalationa 2019-0 Yes [id number] May U nivers l spacing 1-23 substitute ity of device 00:00: other [place] 00 spacing layboy tender Branch nystatin Yes [id number] Take 3 mL [facility] 100,000 23 by mouth 4 ity of unit/mL 00:00: (four) [place] suspension 00 times Medical daily. Branch Scrub around mouth inhalationa Yes [id number] May U nivers l spacing 1-23 substitute ity of device 00:00: other 00 spacing layboy tender Branch nystatin 2020- No [id number] Take 3 mL [facility] 100,000 07-04 12-14 by mouth 4 ity o f unit/mL 00:00: 00:00 (four) [place] suspension 00 :00 times Medical daily. Branch Scrub around mouth predniSONE 2020- No [id number] 2 tabs now [facility] 20 mg 07-0414 and 2 tabs ity of tablet 00:00: 00:00 early [place] 00 :[place] morning Medical for total Branch of 5 doses. predniSONE 2020- No [id number] 2 tabs now [facility] 20 mg 07-0414 and 2 tabs ity of tablet 00:00: 00:00 early each [place] 00 :[place] morning Medical for total Branch of 5 doses. VENTOLIN 2017-06 Yes [id number] 2{puff} Inhale 2 Univers HFA 90 2-03 Puffs ity of mcg/actuati 00:00: every 6 [place] on inhaler 00 (six) Medical hours as Branch needed for Wheezing or Shortness of Breath. VENTOLIN 2017-06 Yes [id number] 2{puff} Inhale 2 [facility] HFA 90 2-03 Puffs ity of mcg/actuati 00:00: every 6 [place] on inhaler 00 (six) Medical hours as Branch needed for Wheezing or Shortness of Breath. VENTOLIN 2017-06 Yes [id number] 2{puff} Inhale 2 [facility] HFA 90 2-03 Puffs ity of mcg/actuati 00:00: every 6 [place] on inhaler 00 (six) Medical hours as Branch needed for Wheezing or Shortness of Breath. VENTOLIN 2017-06 Yes [id number] 2{puff} Inhale 2 [facility] HFA 90 2-03 Puffs ity of mcg/actuati 00:00: every 6 [place] on inhaler 00 (six) Medical hours as Branch needed for Wheezing or Shortness of Breath. MARIAN 2017-06 Yes [id number] 2{puff} Inhale 2 [facility] HFA 90 2-03 Puffs ity of mcg/actuati 00:00: every 6 [place] on inhaler 00 (six) Medical hours as Branch needed for Wheezing or Shortness of Breath. MARIAN 2017-06 Yes [id number] 2{puff} Inhale 2 [facility] HFA 90 2-03 Puffs ity of mcg/actuati 00:00: every 6 [place] on inhaler 00 (six) Medical hours as Branch needed for Wheezing or Shortness of Breath. MARIAN 2017-06 Yes [id number] 2{puff} Inhale 2 [facility] HFA 90 2-03 Puffs ity of mcg/actuati 00:00: every 6 [place] on inhaler 00 (six) Medical hours as Branch needed for Wheezing or Shortness of Breath. MARIAN 2017-06 Yes [id number] 2{puff} Inhale 2 [facility] HFA 90 2-03 Puffs ity of mcg/actuati 00:00: every 6 [place] on inhaler 00 (six) Medical hours as Branch needed for Wheezing or Shortness of Breath. MARIAN 2017-06 Yes [id number] 2{puff} Inhale 2 [facility] HFA 90 2-03 Puffs ity of mcg/actuati 00:00: every 6 [place] on inhaler 00 (six) Medical hours as Branch needed for Wheezing or Shortness of Breath. MARIAN 2017-06 Yes [id number] 2{puff} Inhale 2 [facility] HFA 90 2-03 Puffs ity of mcg/actuati 00:00: every 6 [place] on inhaler 00 (six) Medical hours as Branch needed for Wheezing or Shortness of Breath. MARIAN 2017-06 Yes [id number] 2{puff} Inhale 2 [facility] HFA 90 2-03 Puffs ity of mcg/actuati 00:00: every 6 [place] on inhaler 00 (six) Medical hours as Branch needed for Wheezing or Shortness of Breath. MARIAN 2017-06 Yes [id number] 2{puff} Inhale 2 [facility] HFA 90 2-03 Puffs ity of mcg/actuati 00:00: every 6 [place] on inhaler 00 (six) Medical hours as Branch needed for Wheezing or Shortness of Breath. VENTOLIN 2017-06 Yes [id number] 2{puff} Inhale 2 [facility] HFA 90 2-03 Puffs ity of mcg/actuati 00:00: every 6 [place] on inhaler 00 (six) Medical hours as Branch needed for Wheezing or Shortness of Breath. VENTOLIN 2017-06 Yes [id number] 2{puff} Inhale 2 [facility] HFA 90 2-03 Puffs ity of mcg/actuati 00:00: every 6 [place] on inhaler 00 (six) Medical hours as Branch needed for Wheezing or Shortness of Breath. VENTOLIN 2017-06- No [id number] 2{puff} Inhale 2 [facility] HFA 90 2-03 01-21 Puffs ity of mcg/actuati 00:00: 00:00 every 6 [place] on inhaler 00 :00 (six) Medical hours as Branch needed for Wheezing or Shortness of Breath. budesonide- Yes 2{puff} Inhale 2 Univers formoterol 8-27 Puffs 2 ity of (SYMBICORT) 00:00: (two) [place] 160-4.5 00 times Medical mcg/actuati daily. Branch on inhaler fluticasone Yes 2{spray Use 2 Un lori 50 8-27 } Sprays in ity of mcg/actuati 00:00: each [place] on nasal 00 nostril Medical spray daily. Branch azelastine Yes 1{spray Use 1 Uni vers 137 mcg 8-27 } [place] in ity of (0.1 %) 00:00: each [place] nasal spray 00 nostril 2 Med ical (two) Branch times daily. Use in each nostril as directed budesonide- Yes 2{puff} Inhale 2 Univers formoterol 8-27 Puffs 2 ity of (SYMBICORT) 00:00: (two) [place] 160-4.5 00 times Medical mcg/actuati daily. Branch on inhaler fluticasone Yes 2{spray Use 2 Un lori 50 8-27 } Sprays in ity of mcg/actuati 00:00: each [place] on nasal 00 nostril Medical spray daily. Branch azelastine Yes 1{spray Use 1 Uni vers 137 mcg 8-27 } [place] in ity of (0.1 %) 00:00: each [place] nasal spray 00 nostril 2 Med ical (two) Branch times daily. Use in each nostril as directed budesonide- Yes 2{puff} Inhale 2 Univers formoterol 8-27 Puffs 2 ity of (SYMBICORT) 00:00: (two) [place] 160-4.5 00 times Medical mcg/actuati daily. Branch on inhaler fluticasone Yes 2{spray Use 2 Un lori 50 8-27 } Sprays in ity of mcg/actuati 00:00: each [place] on nasal 00 nostril Medical spray daily. Branch azelastine Yes 1{spray Use 1 Uni vers 137 mcg 8-27 } [place] in ity of (0.1 %) 00:00: each [place] nasal spray 00 nostril 2 Med ical (two) Branch times daily. Use in each nostril as directed budesonide- Yes 2{puff} Inhale 2 Univers formoterol 8-27 Puffs 2 ity of (SYMBICORT) 00:00: (two) [place] 160-4.5 00 times Medical mcg/actuati daily. Branch on inhaler fluticasone Yes 2{spray Use 2 Un lori 50 8-27 } Sprays in ity of mcg/actuati 00:00: each [place] on nasal 00 nostril Medical spray daily. Branch azelastine Yes 1{spray Use 1 Uni vers 137 mcg 8-27 } [place] in ity of (0.1 %) 00:00: each [place] nasal spray 00 nostril 2 Med ical (two) Branch times daily. Use in each nostril as directed budesonide- Yes 2{puff} Inhale 2 Univers formoterol 8-27 Puffs 2 ity of (SYMBICORT) 00:00: (two) [place] 160-4.5 00 times Medical mcg/actuati daily. Branch on inhaler fluticasone Yes 2{spray Use 2 Un lori 50 8-27 } Sprays in ity of mcg/actuati 00:00: each [place] on nasal 00 nostril Medical spray daily. Branch azelastine Yes 1{spray Use 1 Uni vers 137 mcg 8-27 } [place] in ity of (0.1 %) 00:00: each [place] nasal spray 00 nostril 2 Med ical (two) Branch times daily. Use in each nostril as directed budesonide- Yes 2{puff} Inhale 2 Univers formoterol 8-27 Puffs 2 ity of (SYMBICORT) 00:00: (two) [place] 160-4.5 00 times Medical mcg/actuati daily. Branch on inhaler fluticasone Yes 2{spray Use 2 Un lori 50 8-27 } Sprays in ity of mcg/actuati 00:00: each [place] on nasal 00 nostril Medical spray daily. Branch azelastine Yes 1{spray Use 1 Uni vers 137 mcg 8-27 } [place] in ity of (0.1 %) 00:00: each [place] nasal spray 00 nostril 2 Med ical (two) Branch times daily. Use in each nostril as directed budesonide- Yes 2{puff} Inhale 2 Univers formoterol 8-27 Puffs 2 ity of (SYMBICORT) 00:00: (two) [place] 160-4.5 00 times Medical mcg/actuati daily. Branch on inhaler fluticasone Yes 2{spray Use 2 Un lori 50 8-27 } Sprays in ity of mcg/actuati 00:00: each [place] on nasal 00 nostril Medical spray daily. Branch azelastine Yes 1{spray Use 1 Uni vers 137 mcg 8-27 } [place] in ity of (0.1 %) 00:00: each [place] nasal spray 00 nostril 2 Med ical (two) Branch times daily. Use in each nostril as directed budesonide- 0 Yes 2{puff} Inhale 2 Univers formoterol 8-27 Puffs 2 ity of (SYMBICORT) 00:00: (two) [place] 160-4.5 00 times Medical mcg/actuati daily. Branch on inhaler fluticasone Yes 2{spray Use 2 Un lori 50 8-27 } Sprays in ity of mcg/actuati 00:00: each [place] on nasal 00 nostril Medical spray daily. Branch azelastine Yes 1{spray Use 1 Uni vers 137 mcg 8-27 } [place] in ity of (0.1 %) 00:00: each [place] nasal spray 00 nostril 2 Med ical (two) Branch times daily. Use in each nostril as directed budesonide- Yes 2{puff} Inhale 2 Univers formoterol 8-27 Puffs 2 ity of (SYMBICORT) 00:00: (two) [place] 160-4.5 00 times Medical mcg/actuati daily. Branch on inhaler fluticasone Yes 2{spray Use 2 Un lori 50 8-27 } Sprays in ity of mcg/actuati 00:00: each [place] on nasal 00 nostril Medical spray daily. Branch azelastine Yes 1{spray Use 1 Uni vers 137 mcg 8-27 } [place] in ity of (0.1 %) 00:00: each [place] nasal spray 00 nostril 2 Med ical (two) Branch times daily. Use in each nostril as directed budesonide- Yes 2{puff} Inhale 2 Univers formoterol 8-27 Puffs 2 ity of (SYMBICORT) 00:00: (two) [place] 160-4.5 00 times Medical mcg/actuati daily. Branch on inhaler fluticasone Yes 2{spray Use 2 Un lori 50 8-27 } Sprays in ity of mcg/actuati 00:00: each [place] on nasal 00 nostril Medical spray daily. Branch azelastine Yes 1{spray Use 1 Uni vers 137 mcg 8-27 } [place] in ity of (0.1 %) 00:00: each [place] nasal spray 00 nostril 2 Med ical (two) Branch times daily. Use in each nostril as directed budesonide- Yes 2{puff} Inhale 2 Univers formoterol 8-27 Puffs 2 ity of (SYMBICORT) 00:00: (two) [place] 160-4.5 00 times Medical mcg/actuati daily. Branch on inhaler fluticasone Yes 2{spray Use 2 Un lori 50 8-27 } Sprays in ity of mcg/actuati 00:00: each [place] on nasal 00 nostril Medical spray daily. Branch azelastine Yes 1{spray Use 1 Uni vers 137 mcg 8-27 } [place] in ity of (0.1 %) 00:00: each [place] nasal spray 00 nostril 2 Med ical (two) Branch times daily. Use in each nostril as directed budesonide- Yes 2{puff} Inhale 2 Univers formoterol 8-27 Puffs 2 ity of (SYMBICORT) 00:00: (two) [place] 160-4.5 00 times Medical mcg/actuati daily. Branch on inhaler fluticasone Yes 2{spray Use 2 Un lori 50 8-27 } Sprays in ity of mcg/actuati 00:00: each [place] on nasal 00 nostril Medical spray daily. Branch azelastine Yes 1{spray Use 1 Uni vers 137 mcg 8-27 } [place] in ity of (0.1 %) 00:00: each [place] nasal spray 00 nostril 2 Med ical (two) Branch times daily. Use in each nostril as directed fluticasone 2017-0 Yes 2{spray Use 2 Un lori 50 8-27 } Sprays in ity of mcg/actuati 00:00: each [place] on nasal 00 nostril Medical spray daily. Branch azelastine Yes 1{spray Use 1 Uni vers 137 mcg 8-27 } [place] in ity of (0.1 %) 00:00: each [place] nasal spray 00 nostril 2 Med ical (two) Branch times daily. Use in each nostril as directed budesonide- 2017-0 Yes 2{puff} Inhale 2 Univers formoterol 8-27 Puffs 2 ity of (SYMBICORT) 00:00: (two) [place] 160-4.5 00 times Medical mcg/actuati daily. Branch on inhaler fluticasone Yes 2{spray Use 2 Un lori 50 8-27 } Sprays in ity of mcg/actuati 00:00: each [place] on nasal 00 nostril Medical spray daily. Branch azelastine Yes 1{spray Use 1 Uni vers 137 mcg 8-27 } [place] in ity of (0.1 %) 00:00: each [place] nasal spray 00 nostril 2 Med ical (two) Branch times daily. Use in each nostril as directed fluticasone 2021- No 2{spray Use 2 U nivers 50 8-27 01-21 } Sprays in ity of mcg/actuati 00:00: 00:00 each [place] on nasal 00 :00 nostril Medical spray daily. Branch azelastine 2021- No 1{spray Use 1 Un lori 137 mcg 8-27 01-21 } [place] in ity of (0.1 %) 00:00: 00:00 each [place] nasal spray 00 :00 nostril 2 Med ical (two) Branch times daily. Use in each nostril as directed budesonide- 2020- No 2{puff} Inhale 2 Univers formoterol 8 12-14 Puffs 2 ity o f (SYMBICORT) 00:00: 00:00 (two[place] 160-4.5 00 :00 times Medical mcg/actuati daily. Branch on inhaler Immunizations Ordered Filled Immunization Date Status Comments [facility] e Immunization Name Name Influenza Virus 2021-05-27 Completed Universit y of Vaccine Quad IM, 00:00:00 [place] Me dical Preserv and ABX Branch Free 6 MO-64 YRS Influenza Virus 2021-05-27 Completed Universit y of Vaccine [facility] IM, 00:00:00 [place] Me dical Preserv and ABX Branch Free 6 MO-64 YRS Influenza Virus 2021-05-27 Completed Universit y of Vaccine [facility] IM, 00:00:00 [place] Me dical Preserv and ABX Branch Free 6 MO-64 YRS Pfizer COVID-19 Pfizer COVID-19 2020-09-02 Completed Vaccine Vaccine 00:00:00 SARS-COV-2 COVID-19 2020-09-02 Completed Unive rsity of PFIZER VACCINE 00:00:00 [facility] SARS-COV-2 COVID-19 2020-09-02 Completed Unive rsity of PFIZER VACCINE 00:00:00 [facility] SARS-COV-2 COVID-19 2020-09-02 Completed Unive rsity of PFIZER VACCINE 00:00:00 [facility] SARS-COV-2 COVID-19 2020-09-02 Completed Unive rsity of PFIZER VACCINE 00:00:00 [facility] SARS-COV-2 COVID-19 2020-09-02 Completed Unive rsity of PFIZER VACCINE 00:00:00 [facility] SARS-COV-2 COVID-19 2020-09-02 Completed Unive rsity of PFIZER VACCINE 00:00:00 [facility] SARS-COV-2 COVID-19 2020-09-02 Completed Unive rsity of PFIZER VACCINE 00:00:00 [facility] SARS-COV-2 COVID-19 2020-09-02 Completed Unive rsity of PFIZER VACCINE 00:00:00 [facility] SARS-COV-2 COVID-19 2020-09-02 Completed Unive rsity of PFIZER VACCINE 00:00:00 [facility] SARS-COV-2 COVID-19 2020-09-02 Completed Unive rsity of PFIZER VACCINE 00:00:00 [facility] Pfizer COVID-19 Pfizer COVID-19 2020-08-12 Completed Vaccine Vaccine 00:00:00 SARS-COV-2 COVID-19 2020-08-12 Completed Unive rsity of PFIZER VACCINE 00:00:00 [facility] SARS-COV-2 COVID-19 2020-08-12 Completed Unive rsity of PFIZER VACCINE 00:00:00 [facility] SARS-COV-2 COVID-19 2020-08-12 Completed Unive rsity of PFIZER VACCINE 00:00:00 [facility] SARS-COV-2 COVID-19 2020-08-12 Completed Unive rsity of PFIZER VACCINE 00:00:00 [facility] SARS-COV-2 COVID-19 2020-08-12 Completed Unive rsity of PFIZER VACCINE 00:00:00 [facility] SARS-COV-2 COVID-19 2020-08-12 Completed Unive rsity of PFIZER VACCINE 00:00:00 [facility] SARS-COV-2 COVID-19 2020-08-12 Completed Unive rsity of PFIZER VACCINE 00:00:00 [facility] SARS-COV-2 COVID-19 2020-08-12 Completed Unive rsity of PFIZER VACCINE 00:00:00 [facility] SARS-COV-2 COVID-19 2020-08-12 Completed Unive rsity of PFIZER VACCINE 00:00:00 [facility] SARS-COV-2 COVID-19 2020-08-12 Completed Unive rsity of PFIZER VACCINE 00:00:00 [facility] TDAP 2020-03-08 Completed University of 00:00:00 [facility] TDAP 2020-03-08 Completed University of 00:00:00 [facility] TDAP 2020-03-08 Completed University of 00:00:00 [facility] TDAP 2020-03-08 Completed University of 00:00:00 [facility] TDAP 2020-03-08 Completed University of 00:00:00 [facility] TDAP 2020-03-08 Completed University of 00:00:00 [facility] TDAP 2020-03-08 Completed University of 00:00:00 [facility] TDAP 2020-03-08 Completed University of 00:00:00 [facility] TDAP 2020-03-08 Completed University of 00:00:00 [facility] TDAP 2020-03-08 Completed University of 00:00:00 [facility] TDAP 2020-03-08 Completed University of 00:00:00 [facility] TDAP 2020-03-08 Completed University of 00:00:00 [facility] Influenza Virus 2018-04-02 Completed Universit y of Vaccine Quad IM 3+ 00:00:00 [facility] Influenza Virus 2018-04-02 Completed Universit y of Vaccine [facility] IM 3+ 00:00:00 [facility] Influenza Virus 2018-04-02 Completed Universit y of Vaccine [facility] IM 3+ 00:00:00 [facility] Influenza Virus 2018-04-02 Completed Universit y of Vaccine [facility] IM 3+ 00:00:00 [facility] Influenza Virus 2018-04-02 Completed Universit y of Vaccine [facility] IM 3+ 00:00:00 [facility] Influenza Virus 2018-04-02 Completed Universit y of Vaccine [facility] IM 3+ 00:00:00 [facility] Influenza Virus 2018-04-02 Completed Universit y of Vaccine [facility] IM 3+ 00:00:00 [facility] Influenza Virus 2018-04-02 Completed Universit y of Vaccine [facility] IM 3+ 00:00:00 [facility] Influenza Virus 2018-04-02 Completed Universit y of Vaccine [facility] IM 3+ 00:00:00 [facility] Influenza Virus 2018-04-02 Completed Universit y of Vaccine [facility] IM 3+ 00:00:00 [facility] Influenza Virus 2018-04-02 Completed Universit y of Vaccine [facility] IM 3+ 00:00:00 [facility] Influenza Virus 2018-04-02 Completed Universit y of Vaccine [facility] IM 3+ 00:00:00 [facility] Influenza Virus 2018-04-02 Completed Universit y of Vaccine [facility] IM 3+ 00:00:00 [facility] Influenza Virus 2018-04-02 Completed Universit y of Vaccine [facility] IM 3+ 00:00:00 [facility] Influenza Virus 2018-04-02 Completed Universit y of Vaccine [facility] IM 3+ 00:00:00 [facility] Influenza Virus 2018-04-02 Completed Universit y of Vaccine [facility] IM 3+ 00:00:00 [facility] Vital Signs Vital Name Observation Time Observation Value Comments Source Systolic blood 2021-09-11 06:07:43 125 mm[Hg] Univer sity of pressure [facility] Diastolic blood 2021-09-11 06:07:43 70 mm[Hg] Unive rsity of [facility] Heart rate 2021-09-11 06:07:43 75 /min [facility] Respiratory rate 2021-09-11 06:07:43 16 /min [facility] Oxygen saturation in 2021-09-11 06:07:43 98 /min [facility] Arterial blood by [facility] Pulse oximetry Branch Body temperature 2021-09-11 03:30:00 36.56 [place] [facility] Body height 2021-09-11 03:30:00 170.2 cm [facility] Body weight 2021-09-11 03:30:00 116.574 kg [facility] BMI 2021-09-11 03:30:00 40.25 kg/m2 [facility] Systolic blood 2021-07-02 09:00:00 130 mm[Hg] Univer sity of pressure [facility] Diastolic blood 2021-07-02 09:00:00 62 mm[Hg] Unive rsity of pressure [place] [facility] Heart rate 2021-07-02 09:00:00 87 /min Universi ty [facility] [place] [facility] Respiratory rate 2021-07-02 09:00:00 14 /min Univ ersity of [place] [facility] Oxygen saturation in 2021-07-02 09:00:00 95 /min University of Arterial blood by [place] [employer] Pulse oximetry Branch Body temperature 2021-07-02 08:13:00 36.72 Eld[place] Univ ersity of [place] [facility] Body height 2021-07-02 08:13:00 170.2 cm Universi ty [facility] [place] [facility] Body weight 2021-07-02 08:13:00 120.203 kg [facility] [place] [facility] BMI 2021-07-02 08:13:00 41.50 kg/m2 Universi ty of [place] [facility] Systolic blood 2021-05-27 17:59:00 128 mm[Hg] Univer sity of pressure [place] [facility] Diastolic blood 2021-05-27 17:59:00 61 mm[Hg] Unive rsity of pressure [place] [facility] Heart rate 2021-05-27 17:59:00 76 /min [facility] [place] [facility] Body temperature 2021-05-27 17:59:00 36.44 Eld[place] Univ ers[facility] [place] [facility] Respiratory rate 2021-05-27 17:59:00 16 /min Univ ersity of [place] [facility] Oxygen saturation in 2021-05-27 17:59:00 95 /min University of Arterial blood by [facility] Pulse oximetry Branch Body weight 2021-05-26 10:10:00 117.935 kg [facility]i [facility] [place] [facility] BMI 2021-05-26 10:10:00 40.72 kg/m2 [facility] [place] [facility] Systolic blood 2021-05-23 09:00:00 126 mm[Hg] Univer sity of pressure [place] [facility] Diastolic blood 2021-05-23 09:00:00 69 mm[Hg] Unive rsity of pressure [place] [facility] Heart rate 2021-05-23 09:00:00 75 /min [facility]i ty [facility] [place] [facility] Respiratory rate 2021-05-23 09:00:00 14 /min Univ ersity of [place] [facility] Oxygen saturation in 2021-05-23 09:00:00 96 /min University of Arterial blood by [place] [facility] Pulse oximetry Branch Body temperature 2021-05-23 07:02:00 36.72 Elda Univ ersity of [place] [facility] Body height 2021-05-23 07:02:00 170.2 cm [facility]i [facility] [place] [facility] Body weight 2021-05-23 07:02:00 116.574 kg [facility]i [facility] [place] [facility] BMI 2021-05-23 07:02:00 40.25 kg/m2 [facility]i [facility] [place] [facility] Systolic blood 2021-03-01 21:13:12 138 mm[Hg] Univer sity of pressure [place] [facility] Diastolic blood 2021-03-01 21:13:12 78 mm[Hg] Unive rsity of pressure [place] [facility] Heart rate 2021-03-01 21:13:12 66 /min Universi ty [facility] [place] [facility] Body temperature 2021-03-01 21:13:12 37 [place] Univ ers[facility] [place] [facility] Respiratory rate 2021-03-01 21:13:12 17 /min Univ ersity of [place] [facility] Oxygen saturation in 2021-03-01 21:13:12 98 /min University of Arterial blood by [employer] Pulse oximetry Branch Body weight 2021-03-01 17:14:00 116.121 kg [facility]i ty of [place] [facility] BMI 2021-03-01 17:14:00 40.10 kg/m2 [facility]i [facility] [place] [facility] Systolic blood 2021-02-23 22:59:00 128 mm[Hg] Univer sity of pressure [place] [facility] Diastolic blood 2021-02-23 22:59:00 81 mm[Hg] Unive rsity of pressure [place] [facility] Heart rate 2021-02-23 22:59:00 84 /min Universi ty [facility] [place] [facility] Body temperature 2021-02-23 22:59:00 37 [place] Univ ers[facility] [place] [facility] Respiratory rate 2021-02-23 22:59:00 20 /min Univ ersity of [place] [facility] Body weight 2021-02-23 22:59:00 116.121 kg [facility]i [facility] [place] [facility] BMI 2021-02-23 22:59:00 40.10 kg/m2 [facility] [place] [facility] Oxygen saturation in 2021-02-23 22:59:00 96 /min University of Arterial blood by [place] [facility] Pulse oximetry Branch Systolic blood 2020-03-08 22:32:00 122 mm[Hg] Univer sity of pressure [place] [facility] Diastolic blood 2020-03-08 22:32:00 70 mm[Hg] Unive rsity of pressure [place] [facility] Heart rate 2020-03-08 22:32:00 85 /min Universi ty [facility] [place] [facility] Body temperature 2020-03-08 22:32:00 37 [place] Univ ers[facility] [place] [facility] Respiratory rate 2020-03-08 22:32:00 18 /min Univ ersity of [place] [facility] Body height 2020-03-08 22:32:00 170.2 cm [facility] [place] [facility] Body weight 2020-03-08 22:32:00 116.393 kg [facility] [place] [facility] BMI 2020-03-08 22:32:00 40.19 kg/m2 [facility] [place] [facility] Oxygen saturation in 2020-03-08 22:32:00 95 /min University of Arterial blood by [facility] [place] [facility] Pulse oximetry Branch Systolic blood 2020-03-08 22:32:00 122 mm[Hg] Univer sity of pressure [place] [facility] Diastolic blood 2020-03-08 22:32:00 70 mm[Hg] Unive rsity of pressure [place] [facility] Heart rate 2020-03-08 22:32:00 85 /min Universi ty [facility] [place] [facility] Body temperature 2020-03-08 22:32:00 37 [place] Univ ers[facility] [place] [facility] Respiratory rate 2020-03-08 22:32:00 18 /min Univ ersity of [place] [facility] Body height 2020-03-08 22:32:00 170.2 cm [facility] [place] [facility] Body weight 2020-03-08 22:32:00 116.393 kg [facility] [place] [facility] BMI 2020-03-08 22:32:00 40.19 kg/m2 [facility] [place] [facility] Oxygen saturation in 2020-03-08 22:32:00 95 /min University of Arterial blood by [facility] [place] [facility] Pulse oximetry Branch Systolic blood 2019-09-16 21:12:00 132 mm[Hg] Univer sity of pressure [place] [facility] Diastolic blood 2019-09-16 21:12:00 75 mm[Hg] Unive rsity of pressure [place] [facility] Heart rate 2019-09-16 21:12:00 76 /min Universi ty of [facility] Body temperature 2019-09-16 21:12:00 35.56 Elda [facility] 2019-09-16 21:12:00 18 /min [facility] Body weight 2019-09-16 21:12:00 119.75 kg Universi ty of [facility] BMI 2019-09-16 21:12:00 41.35 kg/m2 Universi ty [facility] Oxygen saturation in 2019-09-16 21:12:00 96 /min University of Arterial blood by [facility] Pulse oximetry Branch Systolic blood 2019-09-16 21:12:00 132 mm[facility]Hg] [facility] Diastolic blood 2019-09-16 21:12:00 75 mm[Hg] [facility] Heart rate 2019-09-16 21:12:00 76 /min Universi ty [facility] Body temperature 2019-09-16 21:12:00 35.56 Eld[place] [facility] Respiratory rate 2019-09-16 21:12:00 18 /min [facility] Body weight 2019-09-16 21:12:00 119.75 kg Universi ty [facility] BMI 2019-09-16 21:12:00 41.35 kg/m2 Universi ty [facility] Oxygen saturation in 2019-09-16 21:12:00 96 /min University of Arterial blood by [facility] Pulse oximetry Branch Procedures Procedure Date / Time Performing Clinician Source Performed CT ABDOMEN PELVIS WO 2021-09-11 04:23:15 Jesse Park [facility] CONTRAST [facility] LIPASE 2021-09-11 03:43:00 Esperanza Bonilla [facility] COMP. METABOLIC PANEL 2021-09-11 03:43:00 Esperanza Bonilla [facility] ([id number]) [facility] CBC WITH DIFF 2021-09-11 03:43:00 Esperanza Bonilla [facility] URINALYSIS 2021-09-11 03:43:00 Esperanza Bonilla [facility] CONSENT/REFUSAL FOR 2021-09-11 03:16:26 Doctor Unassigned, [facility] DIAGNOSIS AND TREATMENT [facility] [place] XR CHEST 1 VW 2021-07-02 08:45:32 [facility] TROPONIN I 2021-07-02 08:26:00 [facility] COMP. METABOLIC PANEL 2021-07-02 08:26:00 Marybel Miller [facility] ([id number] CBC WITH DIFF 2021-07-02 08:26:00 [facility] N-TERMINAL PRO-BNP 2021-07-02 08:26:00 Paul Marybel [facility] CONSENT/REFUSAL FOR 2021-07-02 08:09:22 Doctor Unassigned, [facility] DIAGNOSIS AND TREATMENT [facility] BASIC METABOLIC PANEL 2021-05-27 10:00:00 Phu Hernandez [facility] (NA, K, CL, CO2, GLUCOSE, Medica l Branch BUN, CREATININE, CA) CBC WITH DIFF 2021-05-27 10:00:00 Phu Hernandez [facility] MAGNESIUM 2021-05-26 10:10:00 Sri Vasquez [facility] BASIC METABOLIC PANEL 2021-05-26 10:10:00 Sri Vasquez [facility] (NA, K, CL, CO2, GLUCOSE, Medica l Branch BUN, CREATININE, CA) CBC WITH DIFF 2021-05-26 10:08:00 Sri Vasquez [facility] N-TERMINAL PRO-BNP 2021-05-26 03:40:00 Sri Vasquez [facility] PROCALCITONIN 2021-05-26 03:38:00 Sri Vasquez [facility] MAGNESIUM 2021-05-25 22:23:00 Renee Gould [facility] TROPONIN I 2021-05-25 22:23:00 Renee Gould [facility] COMP. METABOLIC PANEL 2021-05-25 22:23:00 Renee Gould [facility] ([id number]) [facility] Branch CBC WITH DIFF 2021-05-25 22:23:00 Renee Gould [facility] PROTHROMBIN TIME / INR 2021-05-25 22:23:00 Renee Gould [facility] ACTIVATED PARTIAL 2021-05-25 22:23:00 [facility]-BNP 2021-05-25 22:23:00 Renee Gould [facility] COVID-19 (ID NOW RAPID 2021-05-25 22:23:00 Renee Gould [facility] TESTING) Medical Branch LAB ONLY COVID 2021-05-25 22:23:00 Renee Gould [facility] INTERPRETATION [facility] XR CHEST 1 VW 2021-05-25 22:11:56 Renee Gould [facility] HB ECG ROUTINE & RHYTHM 2021-05-25 22:11:46 Renee Gould [facility] CONSENT/REFUSAL FOR 2021-05-25 21:28:16 Doctor Unassigned, [facility] DIAGNOSIS AND TREATMENT [facility] XR CHEST 1 VW 2021-05-23 07:32:44 Esperanza Bonilla [facility] NOTICE OF PRIVACY 2021-05-23 06:55:11 Doctor Unamargyigned, [facility] PRACTICES [facility] CONSENT/REFUSAL FOR 2021-05-23 06:54:32 Doctor Unamitchell, [facility] DI[facility]NOSIS [facility] 2021-03-01 18:27:00 Renee Gould [facility] COMP. METABOLIC PANEL 2021-03-01 18:27:00 Renee Gould [facility] ([id number]) [facility] [facility] D-DIMER 2021-03-01 18:27:00 Renee Gould [facility] N-TERMINAL PRO-BNP 2021-03-01 18:27:00 Renee Gould [facility] XR CHEST 1 VW 2021-03-01 18:03:05 Renee Gould [facility] COVID-19 (ID NOW RAPID 2021-03-01 17:19:00 Kathleen Hodges [facility] NOTICE OF PRIVACY 2021-03-01 17:01:37 Doctor Unassigned, [facility] PRACTICES [facility] CONSENT/REFUSAL FOR 2021-03-01 17:01:18 Doctor Unassigned, [facility] DIAGNOSIS AND TREATMENT [facility] XR FOOT 3+ VW RIGHT 2020-03-08 23:09:48 Kenneth [facility] TDAP VACCINE, >11 YRS, IM 2020-03-08 22:58:36 Kenneth [facility] XR CHEST 2 VW COVID 2019-09-16 22:16:16 Angelika [facility] Encounters Start End Encounter Admission Attending Care Care Encounter Source Date/Time Date/Time Type Type Clinicians Facility Department ID 2021-04-12 Emergency [facility] [id number] Univers 23:54:28 [facility] 2021-04-10 Inpatient HCAMN LUIS A [id number] [facility] 10:36:00 [id number] [facility] 2021-02-08 Inpatient RAMBO Galvin, HCABM CPUL [id number] [facility] 09:00:[id number] [facility] 2020-06-19 Inpatient RAMBO Valle HCAMN MRAD [id number] [facility] 13:21:00 Ronnell [id number] [facility] 2021-09-10 2021-09-11 Emergency [facility] [id number] Univers 22:44:00 01:10:00 JESSE vogel [facility] 2021-09-10 2021-09-11 [facility] 1.2.840.114 [id number] Univers 22:44:00 01:10:00 Jeses EDGE [id number] [facility] 4.2.7.2.686 [facility] [phone] [place] [address] [place] 2021-07-02 2021-07-02 Emergency [facility] E[facility] [id number] Univers 02:13:00 03:52:00 MARYBEL [facility] 2021-07-02 2021-07-02 [facility] [id number] Univers 02:13:00 03:52:00 Marybel EDGE [id number] i ty [facility] 4.2.7.2.686 [facility] [phone] [address] 2021-05-25 2021-05-27 Outpatient X YUE [facility] [id number] Univers 16:04:00 13:07:00 MAGO vogel [facility] 2021-05-25 2021-05-27 Emergency Renee Gould [facility] 1.2.840 .114 [id number] Univers 16:04:00 13:07:00 Mago Vazquez 350.1.13.10 ity of [facility] 4.2.7.[address] [place] [phone] 2021-05-23 2021-05-23 Emergency X [facility] ERT [id number] Univers 00:57:00 03:51:00 ESPERANZA vogel [facility] 2021-05-23 2021-05-23 Emergency [facility] [id number] Univers 00:57:00 03:51:00 Esperanza EDGE [id number] ity of [place] 4.2.7.2.[address] [place] [phone] 2021-05-18 2021-05-18 Outpatient NASSER, MHSE PUL [id number] 12:37:00 23:59:00 ARIADNE [facility]ant [facility] 2021-04-10 2021-04-11 Inpatient EM Alok, [facility] TELE [id number] [facility] 10:37:00 16:42:00 Dionne Schaeffer [facility] 2021-03-01 2021-03-01 Emergency [facility] [id number] Univers 12:26:00 16:22:00 Renee Edge [id number] ity of [place] 4.2.7.[address] [place] [phone] 2021-03-01 2021-03-01 Orders Doctor FRANCISCO 1.2.840.114 [id number] Univers 00:00:00 00:00:00 Only Unassigned, CIARAN [id number] ity of [facility] 4.2.7.2.686 [facility] [phone] [facility] 009 Branch 2021-02-23 2021-02-23 Urgent Cecile Jacobson [facility] 1.2.8 40.114 [id number] Univers 17:19:33 20:35:15 Care Unknown, Attending HEALTH 350.1.13.10 ity [facility] 4.2.7.2.686 [facility] [phone] [facility] Primary & 370 [facility] Specialty Care 2021-02-23 2021-02-23 Outpatient R [facility] [id number] Univers 17:30:00 17:30:00 [id number] [facility] 2021-02-23 2021-02-23 Outpatient R MO, [facility] [id number] Univers 17:30:00 17:30:00 [facility] 2021-02-07 2021-02-07 Emergency EM Radwan, HCAMN LUIS A [id number] [facility] 18:12:00 22:00:00 Jina [id number] [facility] 2021-01-28 2021-01-28 Inpatient RAMBO Galvin, HCABM CPUL [id number] [facility] 13:00:00 13:00:00 Ariadne [id number] [facility] 2020-09-02 2020-09-02 Outpatient [facility] [id number] Univers 08:10:00 08:10:00 [facility]JI [facility] 2020-09-02 2020-09-02 Outpatient GCCOVIDV GCCOVIDV [id number] GCCOVID 00:00:00 00:00:00 V 2020-08-12 2020-08-12 Outpatient [facility] [id number] Univers 08:20:00 08:20:00 [id number] [facility] 2020-08-12 2020-08-12 Outpatient Griffin [facility] [id number] Univers 08:20:00 08:20:00 SAJI ity of [facility] 2020-08-12 2020-08-12 Outpatient GCCOVIDV GCCOVIDV [id number] GCCOVID 00:00:00 00:00:00 V 2020-03-08 2020-03-08 [facility] 1.2.840.114 [id number] 18:00:00 23:59:00 Encounter [facility] HEALTH [id number] [place] [address].7.[address] [place] [address] [phone] Primary & 808 Specialty Care 2020-03-08 2020-03-08 [facility] 1.2.840.114 [id number] Univers 18:00:00 23:59:00 Encounter Jeremiah HEALTH 350.1.13.10 [facility] 4.2.7.2.686 [facility] [phone] [facility] Primary & 808 Branch Specialty Care 2020-03-08 2020-03-08 Urgent [facility] 1.2.840.114 [id number] 17:22:59 17:37:59 Care [facility] HEALTH [id number] [place] [address]7.[address] [place] [address] [phone] Primary & 370 Specialty Care 2020-03-08 2020-03-08 [facility] 1.2.840 .114 [id number] Univers 17:22:59 17:37:59 Care Unknown, [facility] HEALTH 350.1.13.10 [facility] 4.2.7.2.[address] [place] [address] [phone] [facility] Primary & 370 [facility] Specialty Care 2020-03-08 2020-03-08 Outpatient R [facility] [id number] Univers 17:30:00 17:30:00 [id number] ity of [facility] 2020-03-08 2020-03-08 Outpatient R UNKNOWN, [facility] [id number] Univers 17:30:00 17:30:00 [facility] 2019-09-18 2019-09-18 [facility] [id number] 00:00:00 00:00:00 Angelika Health 350.1.13.10 [place] 4.2.7.2.686 Professio [phone] nal [facility] Office Building [facility] 2019-09-18 2019-09-18 [facility] 1.2.078.100 [id number] Univers 00:00:00 00:00:00 Angelika Health 350.1.13.10 it y of [place] 4.2.7.2.686 [place] as Professio [phone] [place] dic[address] Office Building [facility] 2019-09-16 2019-09-16 Outpatient R [facility] [id number] Univers 16:49:57 23:59:00 ANGELIKA ity of [facility] 2019-09-16 2019-09-16 [facility] 1.2.840.114 [id number] 16:49:00 23:59:00 Encounter Angelika Edge 350.1.13.10 [place] 4.2.7.2.686 [place] [phone] [facility] 2019-09-16 2019-09-16 [facility] 1.2.840.114 [id number] Univers 16:49:00 23:59:00 Encounter Angelika Edge 350.1.13.10 ity of [place] 4.2.7.2.686 [place] [phone] [address] 2019-09-16 2019-09-16 Urgent Pob1, Acute [facility] 1.2.840.114 [id number] 15:53:42 16:13:42 Care Care Clinic Health 350.1.13.10 [place] 4.2.7.2.686 Professio [phone] [place] [address] Office Building [facility] 2019-09-16 2019-09-16 Urgent Pob1, Acute Care Clinic [facility] 1. 2.840.114 [id number] Univers 15:53:42 16:13:42 Care [facility] 350.1.13.10 ity of [place] 4.2.7.2.686 [place] Professio [phone] Ny dical nal [address] [place] [address] Office Building [facility] 2019-09-16 2019-09-16 Outpatient R [facility] [id number] Univers 16:00:00 16:00:00 [id number] ity of [facility] 2019-09-16 2019-09-16 Telephone Pob1, Acute [facility] 1.2.840.114 [id number] 00:00:00 00:00:00 [facility] 350.1.13.10 [place] 4.2.7.2.686 Professio [phone] nal [facility] Office Building One 2019-09-16 2019-09-16 Telephone Pob1, Acute [facility] 1.2.840.114 [id number] [facility] 00:00:00 00:00:00 [facility] 350.1.13.10 ity [facility] 4.2.7.2.686 [place] Professio [phone] Me dical [address] Office Building One 2019-03-07 2019-03-07 Emergency X SINGER [facility] ERT [id number] Univers 08:51:49 11:24:00 GAUTAM [facility] 2019-01-08 2019-01-08 Outpatient R RADIOLOGY [facility] [id number] Univers 00:00:00 00:00:00 [facility] Results Test Description Test Time Test Comments Results Result Comments Source Complete Metabolic Panel 2021-09-11 04:08:50 Test Item Value Reference Range Interpretation Comme nts NA (test code = 2694019864) 138 mmol/L 135-145 K (test code = 3083158521) 3.9 mmol/L 3.5-5.0 CL (test code = 9503037191) 100 mmol/L 98-108 CO2 TOTAL (test code = 31 mmol/L 23-31 6298041139) AGAP (test code = 8821771851) 2-16 BUN (test code = 8593723723) 22 mg/dL 7-23 GLUCOSE (test code = 0202155125) 78 mg/dL 70-110 CREATININE (test code = 0.80 mg/dL 0.50-1.04 1287147612) TOTAL BILI (test code = 0.4 mg/dL 0.1-1.3 6922285048) CALCIUM (test code = 8147807917) 9.4 mg/dL 8.6-10.6 T PROTEIN (test code = 7.0 g/dL 6.3-8.2 2233347532) ALBUMIN (test code = 6890909077) 4.3 g/dL 3.5-5.0 ALK PHOS (test code = 4804984374) 102 U/L 34-122 ALTv (test code = 1742-6) 16 U/L 5-35 AST(SGOT) (test code = 21 U/L 13-40 2336249102) eGFR (test code = 2639356133) mL/min/1.73m2 ILDEFONSO (test code = ILDEFONSO) Association of Glomerular Filtration Rate (GFR) and Staging of Kidney Disease* + +--------- + ----+| GFR (mL/min/1.73 m2) ?| With Kidney Damage ?| ?Without Kidney Damage+ +--- + +| ?>90 ?| ?Stage one ?| ? Normal ?+ +-------- + -----+| ?60-89 ?| ?Stage two ?| ? Decreased GFR ? + +--------- + ----+| ?30-59 ?| ?Stage three ?| ? Stage three ? + +--------- + ----+| ?15-29 ?| ?Stage four ? | ? Stage four ?+ +-------- + -----+| ?<15 (or dialysis) ? ?| ?Stage five ? | ? Stage five ?+ +-------- + -----+ *Each stage assumes the associated GFR level has been in effect for at least three months. ?Stages 1 to 5, with or without kidney disease, indicate chronic kidney disease. Notes: Determination of stages one and two (with eGFR >59mL/min/1.73 m2) requires estimation of kidney damage for at least three months as defined by structural or functional abnormalities of the kidney, manifested by either:Pathological abnormalities or Markers of kidney damage (including abnormalities in the composition of the blood or urine or abnormalities in imaging tests). [facility] [id number] 04:08:50 Test Item Value Reference Range Interpretation Comments LIPASE (test code = 2971630819) 142 U/L 0-220 Lab Interpretation (test code = Normal 43751-8) [facility] with [id number] 03:59:08 Test Item Value Reference Range Interpretation Comments WBC (test code = See_Comment [Automated 6690-2) message] The sy stem which generated this result transmitted reference range : 4.30 - 11.10 10*3/?L. The reference range was not used to interpret this result as normal/abnormal . RBC (test code = See_Comment [Automated 789-8) message] The sy stem which generated this result transmitted reference range : 3.93 - 5.25 10*6/?L. The reference range was not used to interpret this result as normal/abnormal . HGB (test code = 14.2 g/dL 11.6-15.0 718-7) HCT (test code = 44.2 % 35.7-45.2 4544-3) MCV (test code = 90.0 fL 80.6-95.5 787-2) MCH (test code = 28.9 pg 25.9-32.8 785-6) MCHC (test code = 32.1 g/dL 31.6-35.1 786-4) RDW-SD (test code = 46.5 fL 39.0-49.9 30346-4) RDW-CV (test code = 14.0 % 12.0-15.5 788-0) PLT (test code = See_Comment [Automated 777-3) message] The sy stem which generated this result transmitted reference range : 166 - 358 10*3/ ?L. The reference r dafne was not used to interpret this result as normal/abnormal . MPV (test code = 10.9 fL 9.5-12.9 84615-5) NRBC/100 WBC (test See_Comment [Automat ed code = 1248361035) message] The system which generated this result transmitted reference range : 0.0 - 10.0 /100 WBCs. The refer ence range was not u sed to interpret th is result as normal/abnormal . NRBC x10^3 (test code <0.01 See_Comment [Auto mated = 2516178698) message] The s ystem which generated this result transmitted reference range : 10*3/?L. The reference range was not used to interpret this result as normal/abnormal . GRAN MAT (NEUT) % 55.4 % (test code = 770-8) IMM GRAN % (test code 0.20 % = 6470910630) LYMPH % (test code = 35.1 % 736-9) MONO % (test code = 7.2 % 5905-5) EOS % (test code = 1.6 % 713-8) BASO % (test code = 0.5 % 706-2) GRAN MAT x10^3(ANC) 5.92 10*3/uL 1.88-7.09 (test code = 9355815662) IMM GRAN x10^3 (test <0.03 0.00-0.06 code = 2138574111) LYMPH x10^3 (test code 3.74 10*3/uL 1.32-3.29 H = 731-0) MONO x10^3 (test code 0.77 10*3/uL 0.33-0.92 = 742-7) EOS x10^3 (test code = 0.17 10*3/uL 0.03-0.39 711-2) BASO x10^3 (test code 0.05 10*3/uL 0.01-0.07 = 704-7) Lab Interpretation Abnormal (test code = 89450-5) [id number]58 Test Item Value Reference Interpretation Comments Range TROPONIN I (test 0.001 ng/mL See_Comment [Automated code = 8242250551) message] The system which generated this result transmitted reference range : <=0.034. The reference range was not used to interpret this result as normal/abnormal . ILDEFONSO (test code = Reference (Normal) ILDEFONSO) Range (defined by the 99th percentile reference limit): <= 0.034 ng/mL Note: Cardiac troponin begins to rise 3-4 hours after the onset of ischemia. Repeat in 4-6 hours if the sample was drawn within 3-4 hours of the onset of the symptom and found normal. Diagnosis of myocardial injury is made with acute changes in cTn concentrations with at least one serial sample above the 99th percentile upper reference limit (URL), taken together with the patient's clinical presentation. Biotin has been reported to cause a negative bias, interpret results relative to patient's use of biotin. Lab Interpretation Normal (test code = 47771-6) [facility] [id number] 08:57:42 Test Item Value Reference Range Interpretation Comments NT-proBNP (test code 29 pg/mL See_Comment [Autom ated = 6559529579) message] The system which generated this result transmitted reference range : <=125. The reference range was not used to interpret this result as normal/abnormal . ILDEFONSO (test code = ILDEFONSO) Biotin has been reported to cause a negative bias, interpret results relative to patient's use of biotin. Lab Interpretation Normal (test code = 37834-8) [facility]. METABOLIC PANEL (83136)2021-07-02 08:49:16 Test Item Value Reference Range Interpretation Comments NA (test code = 139 mmol/L 135-145 8276891818) K (test code = 3.8 mmol/L 3.5-5.0 2930081261) CL (test code = 103 mmol/L 98-108 0658096920) CO2 TOTAL (test code 29 mmol/L 23-31 = 6007987085) AGAP (test code = 2-16 8516321106) BUN (test code = 14 mg/dL 7-23 1007335402) GLUCOSE (test code = 104 mg/dL 70-110 3162039537) CREATININE (test code 0.61 mg/dL 0.50-1.04 = 1607938096) TOTAL BILI (test code 0.3 mg/dL 0.1-1.1 = 5798820314) CALCIUM (test code = 8.9 mg/dL 8.6-10.6 9268844417) T PROTEIN (test code 6.5 g/dL 6.3-8.2 = 5369972670) ALBUMIN (test code = 3.8 g/dL 3.5-5.0 3775030893) ALK PHOS (test code = 102 U/L 34-122 0726047447) ALTv (test code = 14 U/L 5-35 1742-6) AST(SGOT) (test code 18 U/L 13-40 = 9892408653) eGFR (test code = mL/min/1.73m2 5133270272) ILDEFONSO (test code = ILDEFONSO) Association of Glomerular Filtration Rate (GFR) and Staging of Kidney Disease* + + +- +| GFR (mL/min/1.73 m2) ?| With Kidney Damage ?| ?Without Kidney Damage+ ------+ ----+ ------+| ?>90 ?| ?Stage one ?| ? Normal ?+ -+ + -+| ?60-89 ?| ?Stage two ?| ? Decreased GFR ? + + +- +| ?30-59 ?| ?Stage three ?| ? Stage three ? + + +- +| ?15-29 ?| ?Stage four ? | ? Stage four ?+ -+ + -+| ?<15 (or dialysis) ? ?| ?Stage five ? | ? Stage five ?+ -+ + -+ *Each stage assumes the associated GFR level has been in effect for at least three months. ?Stages 1 to 5, with or without kidney disease, indicate chronic kidney disease. Notes: Determination of stages one and two (with eGFR >59mL/min/1.73 m2) requires estimation of kidney damage for at least three months as defined by structural or functional abnormalities of the kidney, manifested by either:Pathological abnormalities or Markers of kidney damage (including abnormalities in the composition of the blood or urine or abnormalities in imaging tests). [facility] WITH [id number] 08:31:54 Test Item Value Reference Range Interpretation Comments WBC (test code = See_Comment [Automated 8451-2) message] The sy stem which generated this result transmitted reference range : 4.30 - 11.10 10*3/?L. The reference range was not used to interpret this result as normal/abnormal . RBC (test code = See_Comment [Automated 634-8) message] The sy stem which generated this result transmitted reference range : 3.93 - 5.25 10*6/?L. The reference range was not used to interpret this result as normal/abnormal . HGB (test code = 12.8 g/dL 11.6-15.0 718-7) HCT (test code = 40.3 % 35.7-45.2 4544-3) MCV (test code = 92.4 fL 80.6-95.5 787-2) MCH (test code = 29.4 pg 25.9-32.8 785-6) MCHC (test code = 31.8 g/dL 31.6-35.1 786-4) RDW-SD (test code = 48.0 fL 39.0-49.9 33680-7) RDW-CV (test code = 14.1 % 12.0-15.5 788-0) PLT (test code = See_Comment [Automated 777-3) message] The sy stem which generated this result transmitted reference range : 166 - 358 10*3/ ?L. The reference r dafne was not used to interpret this result as normal/abnormal . MPV (test code = 10.0 fL 9.5-12.9 69424-7) NRBC/100 WBC (test See_Comment [Automat ed code = 3333363400) message] The system which generated this result transmitted reference range : 0.0 - 10.0 /100 WBCs. The refer ence range was not u sed to interpret th is result as normal/abnormal . NRBC x10^3 (test code <0.01 See_Comment [Auto mated = 4392287134) message] The s ystem which generated this result transmitted reference range : 10*3/?L. The reference range was not used to interpret this result as normal/abnormal . GRAN MAT (NEUT) % 51.3 % (test code = 770-8) IMM GRAN % (test code 0.50 % = 2585317002) LYMPH % (test code = 35.6 % 736-9) MONO % (test code = 7.3 % 5905-5) EOS % (test code = 4.3 % 713-8) BASO % (test code = 1.0 % 706-2) GRAN MAT x10^3(ANC) 4.52 10*3/uL 1.88-7.09 (test code = 6909783482) IMM GRAN x10^3 (test 0.04 10*3/uL 0.00-0.06 code = 6868747565) LYMPH x10^3 (test code 3.13 10*3/uL 1.32-3.29 = 731-0) MONO x10^3 (test code 0.64 10*3/uL 0.33-0.92 = 742-7) EOS x10^3 (test code = 0.38 10*3/uL 0.03-0.39 711-2) BASO x10^3 (test code 0.09 10*3/uL 0.01-0.07 H = 704-7) Lab Interpretation Abnormal (test code = 98442-9) [facility] WITH [id number] 12:40:27 Test Item Value Reference Range Interpretation Comments WBC (test code = See_Comment H [Automated 6690-2) message] The sy stem which generated this result transmitted reference range : 4.30 - 11.10 10*3/?L. The reference range was not used to interpret this result as normal/abnormal . RBC (test code = See_Comment L [Automated 789-8) message] The sy stem which generated this result transmitted reference range : 3.93 - 5.25 10*6/?L. The reference range was not used to interpret this result as normal/abnormal . HGB (test code = 11.5 g/dL 11.6-15.0 L 718-7) HCT (test code = 35.7 % 35.7-45.2 4544-3) MCV (test code = 91.1 fL 80.6-95.5 787-2) MCH (test code = 29.3 pg 25.9-32.8 785-6) MCHC (test code = 32.2 g/dL 31.6-35.1 786-4) RDW-SD (test code = 49.4 fL 39.0-49.9 01791-0) RDW-CV (test code = 14.8 % 12.0-15.5 788-0) PLT (test code = See_Comment [Automated 777-3) message] The sy stem which generated this result transmitted reference range : 166 - 358 10*3/ ?L. The reference r dafne was not used to interpret this result as normal/abnormal . MPV (test code = 11.4 fL 9.5-12.9 56451-4) NRBC/100 WBC (test See_Comment [Automat ed code = 5161350880) message] The system which generated this result transmitted reference range : 0.0 - 10.0 /100 WBCs. The refer ence range was not u sed to interpret th is result as normal/abnormal . NRBC x10^3 (test code <0.01 See_Comment [Auto mated = 8681790897) message] The s ystem which generated this result transmitted reference range : 10*3/?L. The reference range was not used to interpret this result as normal/abnormal . GRAN MAT (NEUT) % 55.9 % (test code = 770-8) IMM GRAN % (test code 0.50 % = 4058781360) LYMPH % (test code = 36.4 % 736-9) MONO % (test code = 6.6 % 5905-5) EOS % (test code = 0.3 % 713-8) BASO % (test code = 0.3 % 706-2) GRAN MAT x10^3(ANC) 6.23 10*3/uL 1.88-7.09 (test code = 2211672033) IMM GRAN x10^3 (test 0.06 10*3/uL 0.00-0.06 code = 8162614698) LYMPH x10^3 (test code 4.05 10*3/uL 1.32-3.29 H = 731-0) MONO x10^3 (test code 0.74 10*3/uL 0.33-0.92 = 742-7) EOS x10^3 (test code = 0.03 10*3/uL 0.03-0.39 711-2) BASO x10^3 (test code 0.03 10*3/uL 0.01-0.07 = 704-7) Lab Interpretation Abnormal (test code = 27841-4) [facility] METABOLIC PANEL (NA, K, CL, CO2, GLUCOSE, BUN, CREATININE, CA)2021-05-27 11:21:32 Test Item Value Reference Range Interpretation Comments NA (test code = 138 mmol/L 135-145 9562749918) K (test code = 3.7 mmol/L 3.5-5.0 5557663363) CL (test code = 106 mmol/L 98-108 5241704487) CO2 TOTAL (test code 28 mmol/L 23-31 = 3802331731) AGAP (test code = 2-16 1990851843) BUN (test code = 23 mg/dL 7-23 8162730353) GLUCOSE (test code = 95 mg/dL 70-110 8752758692) CREATININE (test code 0.65 mg/dL 0.50-1.04 = 9393862832) CALCIUM (test code = 9.0 mg/dL 8.6-10.6 2865236781) eGFR (test code = mL/min/1.73m2 8415421145) ILDEFONSO (test code = ILDEFONSO) Association of Glomerular Filtration Rate (GFR) and Staging of Kidney Disease* + + +- +| GFR (mL/min/1.73 m2) ?| With Kidney Damage ?| ?Without Kidney Damage+ ------+ ----+ ------+| ?>90 ?| ?Stage one ?| ? Normal ?+ -+ + -+| ?60-89 ?| ?Stage two ?| ? Decreased GFR ? + + +- +| ?30-59 ?| ?Stage three ?| ? Stage three ? + + +- +| ?15-29 ?| ?Stage four ? | ? Stage four ?+ -+ + -+| ?<15 (or dialysis) ? ?| ?Stage five ? | ? Stage five ?+ -+ + -+ *Each stage assumes the associated GFR level has been in effect for at least three months. ?Stages 1 to 5, with or without kidney disease, indicate chronic kidney disease. Notes: Determination of stages one and two (with eGFR >59mL/min/1.73 m2) requires estimation of kidney damage for at least three months as defined by structural or functional abnormalities of the kidney, manifested by either:Pathological abnormalities or Markers of kidney damage (including abnormalities in the composition of the blood or urine or abnormalities in imaging tests). [facility] [id number] 12:28:47 Test Item Value Reference Range Interpretation Comments MAGNESIUM (test code = 4453839268) 2.2 mg/dL 1.7-2.4 Lab Interpretation (test code = Normal 63870-6) [facility] Metabolic Panel (NA, K, CL, CO2, GLUCOSE, BUN, CREATININE, CA)2021-05-26 12:28:46 Test Item Value Reference Range Interpretation Comments NA (test code = 138 mmol/L 135-145 0822310955) K (test code = 4.3 mmol/L 3.5-5.0 6366577905) CL (test code = 107 mmol/L 98-108 3190276033) CO2 TOTAL (test code = 26 mmol/L 23-31 7566483402) AGAP (test code = 2-16 6766088881) BUN (test code = 15 mg/dL 7-23 9091569125) GLUCOSE (test code = 133 mg/dL 70-110 H 3150576320) CREATININE (test code = 0.56 mg/dL 0.50-1.04 5805703319) CALCIUM (test code = 8.9 mg/dL 8.6-10.6 5538886767) eGFR (test code = mL/min/1.73m2 3762976947) ILDEFONSO (test code = ILDEFONSO) Association of Glomerular Filtration Rate (GFR) and Staging of Kidney Disease* + --+ --+ ------+| GFR (mL/min/1.73 m2) ?| With Kidney Damage ?| ?Without Kidney Damage+ --------+ --------+ +| ?>90 ?| ?Stage one ?| ? Normal ?+ ---+ ---+ -------+| ?60-89 ?| ?Stage two ?| ? Decreased GFR ? + --+ --+ ------+| ?30-59 ?| ?Stage three ?| ? Stage three ? + --+ --+ ------+| ?15-29 ?| ?Stage four ? | ? Stage four ?+ ---+ ---+ -------+| ?<15 (or dialysis) ? ?| ?Stage five ? | ? Stage five ?+ ---+ ---+ -------+ *Each stage assumes the associated GFR level has been in effect for at least three months. ?Stages 1 to 5, with or without kidney disease, indicate chronic kidney disease. Notes: Determination of stages one and two (with eGFR >59mL/min/1.73 m2) requires estimation of kidney damage for at least three months as defined by structural or functional abnormalities of the kidney, manifested by either:Pathological abnormalities or Markers of kidney damage (including abnormalities in the composition of the blood or urine or abnormalities in imaging tests). Lab Interpretation Abnormal (test code = 25440-8) [facility] with [id number] 11:31:38 Test Item Value Reference Range Interpretation Comments WBC (test code = See_Comment [Automated 6690-2) message] The sy stem which generated this result transmitted reference range : 4.30 - 11.10 10*3/?L. The reference range was not used to interpret this result as normal/abnormal . RBC (test code = See_Comment [Automated 789-8) message] The sy stem which generated this result transmitted reference range : 3.93 - 5.25 10*6/?L. The reference range was not used to interpret this result as normal/abnormal . HGB (test code = 12.3 g/dL 11.6-15.0 718-7) HCT (test code = 38.5 % 35.7-45.2 4544-3) MCV (test code = 91.2 fL 80.6-95.5 787-2) MCH (test code = 29.1 pg 25.9-32.8 785-6) MCHC (test code = 31.9 g/dL 31.6-35.1 786-4) RDW-SD (test code = 49.0 fL 39.0-49.9 92305-7) RDW-CV (test code = 14.6 % 12.0-15.5 788-0) PLT (test code = See_Comment [Automated 777-3) message] The sy stem which generated this result transmitted reference range : 166 - 358 10*3/ ?L. The reference r dafne was not used to interpret this result as normal/abnormal . MPV (test code = 11.4 fL 9.5-12.9 41158-5) NRBC/100 WBC (test See_Comment [Automat ed code = 7364840315) message] The system which generated this result transmitted reference range : 0.0 - 10.0 /100 WBCs. The refer ence range was not u sed to interpret th is result as normal/abnormal . NRBC x10^3 (test code <0.01 See_Comment [Auto mated = 8406655825) message] The s ystem which generated this result transmitted reference range : 10*3/?L. The reference range was not used to interpret this result as normal/abnormal . GRAN MAT (NEUT) % 83.5 % (test code = 770-8) IMM GRAN % (test code 0.80 % = 0458745892) LYMPH % (test code = 13.6 % 736-9) MONO % (test code = 1.9 % 5905-5) EOS % (test code = 0.0 % 713-8) BASO % (test code = 0.2 % 706-2) GRAN MAT x10^3(ANC) 8.13 10*3/uL 1.88-7.09 H (test code = 3572849812) IMM GRAN x10^3 (test 0.08 10*3/uL 0.00-0.06 H code = 0827818979) LYMPH x10^3 (test code 1.33 10*3/uL 1.32-3.29 = 731-0) MONO x10^3 (test code 0.19 10*3/uL 0.33-0.92 L = 742-7) EOS x10^3 (test code = <0.03 0.03-0.39 L 711-2) BASO x10^3 (test code <0.03 0.01-0.07 = 704-7) Lab Interpretation Abnormal (test code = 32709-8) [facility] 09:00:29 Test Item Value Reference Range Interpretation Comments Procalcitonin (test 0.07 ng/mL <0.07 H code = 4594925195) ILDEFONSO (test code = ILDEFONSO) INTERPRETATION OF PROCALCITONIN RESULTS IN ADULTS >= 18 YEARS OF AGE Initiation and discontinuation of antibiotics on patients with suspected or confirmed Lower Respiratory Tract Infection in Adults >= 18 years of age. + +-------- --------+ + -----+|Procalcitonin |Interpretation ?|Antibiotic ? ? |Considerations ? |ng/mL ? | ?|recommendation | ? + +-------- --------+ + -----+| <0.1 ? | Bacterial ? ? ?| Strongly ? ? ?| ? | ?| infection very | discouraged ? | Overruling: ? | ?| unlikely ? ? ? | ? | ? Clinically unstable ? ? ? + +-------- --------+ + ? High risk for adverse ? ? | <0.25 ?| Bacterial ? ? ?| Discouraged ? | ? outcome ? | ?| infection ? ? ?| ? | ? SEE IMPORTANT NOTE ?| ?| unlikely ? ? ? | ? | ? + +-------- --------+ + -----+| >=0.25 ? ? ? | Bacterial ? ? ?| Encouraged ? ?| ? | ?| infection ? ? ?| ? | ? | ?| likely ? | ? | Consider treatment failure ?+ +------- ---------+ -+ if levels does not decrease | >0.5 ? | Bacterial ? ? ?| Strongly ? ? ?| appropriately ? | ?| infection very | encouraged ? ?| ? | ?| likely ? | ? | ? + +-------- --------+ + -----+ Discontinuation of antibiotics in high-acuity patients with suspected or confirmed sepsis in Adults >= 18 years of age. + +-------- --------+ + -----+|Procalcitonin |Interpretation ?|Antibiotic ? ? |Considerations ? |ng/mL ? | ?|recommendation | ? + +-------- --------+ + -----+| <0.25 ?| Bacterial ? ? ?| Strongly ? ? ?| ? | ?| infection very | discouraged ? | Overruling: ? | ?| unlikely ? ? ? | ? | ? Clinically unstable ? ? ? + +-------- --------+ + ? High risk for adverse ? ? | <0.5 or drop | Bacterial ? ? ?| Discouraged ? | ? outcome ? | >80% from ? ?| infection ? ? ?| ? | ? SEE IMPORTANT NOTE ?| highest PCT ?| unlikely ? ? ? | ? | ? | level ?| ?| ? | ? + +-------- --------+ + -----+| >=0.5 ?| Bacterial ? ? ?| Encouraged ? ?| ? | ?| infection ? ? ?| ? | ? | ?| likely ? | ? | Consider treatment failure ?+ +------- ---------+ -+ if levels does not decrease | >1.0 ? | Bacterial ? ? ?| Strongly ? ? ?| appropriately ? | ?| infection very | encouraged ? ?| ? | ?| likely ? | ? | ? + +-------- --------+ + -----+ Percentage of drop of Procalcitonin calculation for Discontinuation of antibiotics in high-acuity patients with suspected or confirmed sepsis in Adults >= 18 years of age. ? Procalcitonin highest{}-Procalcitonin current{}Delta Procalcitonin = x100% ? Procalcitonin current {} IMPORTANT NOTE: Procalcitonin may be elevated without bacterial infection by physiologic stress related to trauma, [place], chronic dialysis, metastatic cancer, surgery in the past seven days, malaria, some fungal infections, and some forms of vasculitis. The interpretation algorithm may not apply to patients with immunosuppression (equivalent of >10 mg of prednisone daily), HIV with CD4 cell count < 350 cells/mm3, active malignancy on systemic chemotherapy, solid organ transplant or hematopoietic stem cell transplantation, or hospital acquired pneumonia. Additionally, some clinical trials of procalcitonin have excluded patients with shock requiring vasopressor use, acute respiratory failure requiring mechanical ventilation, or those with known lung abscess/empyema. For further information please refer to:[email or web address] Lab Interpretation Abnormal (test code = 31282-1) [facility] [id number] 04:30:38 Test Item Value Reference Range Interpretation Comments NT-proBNP (test code 50 pg/mL See_Comment [Autom ated = 9630992663) message] The system which generated this result transmitted reference range : <=125. The reference range was not used to interpret this result as normal/abnormal . ILDEFONSO (test code = ILDEFONSO) Biotin has been reported to cause a negative bias, interpret results relative to patient's use of biotin. Lab Interpretation Normal (test code = 85087-6) [facility] [id number] 23:08:41 Test Item Value Reference Interpretation Comments Range TROPONIN I (test 0.001 ng/mL See_Comment [Automated code = 3253598469) message] The system which generated this result transmitted reference range : <=0.034. The reference range was not used to interpret this result as normal/abnormal . ILDEFONSO (test code = Reference (Normal) ILDEFONSO) Range (defined by the 99th percentile reference limit): <= 0.034 ng/mL Note: Cardiac troponin begins to rise 3-4 hours after the onset of ischemia. Repeat in 4-6 hours if the sample was drawn within 3-4 hours of the onset of the symptom and found normal. Diagnosis of myocardial injury is made with acute changes in cTn concentrations with at least one serial sample above the 99th percentile upper reference limit (URL), taken together with the patient's clinical presentation. Biotin has been reported to cause a negative bias, interpret results relative to patient's use of biotin. Lab Interpretation Normal (test code = 65893-6) [facility] [id number] 23:05:19 Test Item Value Reference Range Interpretation Comments NT-proBNP (test code 62 pg/mL See_Comment [Autom ated = 8461937694) message] The system which generated this result transmitted reference range : <=125. The reference range was not used to interpret this result as normal/abnormal . ILDEFONSO (test code = ILDEFONSO) Biotin has been reported to cause a negative bias, interpret results relative to patient's use of biotin. Lab Interpretation Normal (test code = 05638-4) [facility]2021-12-14 22:56:37 Test Item Value Reference Range Interpretation Comments MAGNESIUM (test code = 4480473582) 1.8 mg/dL 1.7-2.4 Lab Interpretation (test code = Normal 32279-7) [facility]. METABOLIC PANEL (15763)2021-05-25 22:56:36 Test Item Value Reference Range Interpretation Comments NA (test code = 139 mmol/L 135-145 4719726924) K (test code = 4.3 mmol/L 3.5-5.0 8457513023) CL (test code = 106 mmol/L 98-108 9663973014) CO2 TOTAL (test code 28 mmol/L 23-31 = 6268010709) AGAP (test code = 2-16 0178036319) BUN (test code = 13 mg/dL 7-23 5227045631) GLUCOSE (test code = 97 mg/dL 70-110 2701547316) CREATININE (test code 0.68 mg/dL 0.50-1.04 = 9176182734) TOTAL BILI (test code 0.4 mg/dL 0.1-1.1 = 9600330241) CALCIUM (test code = 9.2 mg/dL 8.6-10.6 7913094647) T PROTEIN (test code 6.6 g/dL 6.3-8.2 = 4653351906) ALBUMIN (test code = 3.8 g/dL 3.5-5.0 9674111703) ALK PHOS (test code = 105 U/L 34-122 4464637341) ALTv (test code = 15 U/L 5-35 1742-6) AST(SGOT) (test code 19 U/L 13-40 = 8505317122) eGFR (test code = mL/min/1.73m2 7751889117) ILDEFONSO (test code = ILDEFONSO) Association of Glomerular Filtration Rate (GFR) and Staging of Kidney Disease* + + +- +| GFR (mL/min/1.73 m2) ?| With Kidney Damage ?| ?Without Kidney Damage+ ------+ ----+ ------+| ?>90 ?| ?Stage one ?| ? Normal ?+ -+ + -+| ?60-89 ?| ?Stage two ?| ? Decreased GFR ? + + +- +| ?30-59 ?| ?Stage three ?| ? Stage three ? + + +- +| ?15-29 ?| ?Stage four ? | ? Stage four ?+ -+ + -+| ?<15 (or dialysis) ? ?| ?Stage five ? | ? Stage five ?+ -+ + -+ *Each stage assumes the associated GFR level has been in effect for at least three months. ?Stages 1 to 5, with or without kidney disease, indicate chronic kidney disease. Notes: Determination of stages one and two (with eGFR >59mL/min/1.73 m2) requires estimation of kidney damage for at least three months as defined by structural or functional abnormalities of the kidney, manifested by either:Pathological abnormalities or Markers of kidney damage (including abnormalities in the composition of the blood or urine or abnormalities in imaging tests). [facility]anoACTIV[facility] PARTIAL THRMPLAS [id number] 22:52:53 Test Item Value Reference Range Interpretation Comments APTT Patient (test See_Comment [Automat ed code = 3173-2) message] The system which generated this result transmitted reference range : 23 - 38 Seconds . The reference range was not used to interpr et this result as normal/abnormal . ILDEFONSO (test code = ILDEFONSO) The [facility] patient population mean normal value for aPTT is 30 seconds. Lab Interpretation Normal (test code = 07038-0) [facility] PlanoPROTHROMBIN TIME / [id number] 22:50:52 Test Item Value Reference Range Interpretation Comments PROTIME PATIENT (test See_Comment L [Auto mated message] code = 5964-2) The system wh ich generated this result transmitted ref erence range: 12.0 - 1 4.7 Seconds. The reference range was not used to int erpret this result as normal/abnormal . INR (test code = 6301-6) Nor mal INR <1.1; Warfarin Therap eutic range 2.0 to 3. 0 or 2.5 to 3.5, dep ending upon the indica tions. Lab Interpretation (test Abnormal code = 97297-3) [facility]anoCBC WITH [id number] 22:42:51 Test Item Value Reference Range Interpretation Comments WBC (test code = See_Comment [Automated 6690-2) message] The sy stem which generated this result transmitted reference range : 4.30 - 11.10 10*3/?L. The reference range was not used to interpret this result as normal/abnormal . RBC (test code = See_Comment [Automated 789-8) message] The sy stem which generated this result transmitted reference range : 3.93 - 5.25 10*6/?L. The reference range was not used to interpret this result as normal/abnormal . HGB (test code = 12.8 g/dL 11.6-15.0 718-7) HCT (test code = 40.0 % 35.7-45.2 4544-3) MCV (test code = 92.4 fL 80.6-95.5 787-2) MCH (test code = 29.6 pg 25.9-32.8 785-6) MCHC (test code = 32.0 g/dL 31.6-35.1 786-4) RDW-SD (test code = 50.7 fL 39.0-49.9 H 15321-1) RDW-CV (test code = 14.8 % 12.0-15.5 788-0) PLT (test code = See_Comment [Automated 777-3) message] The sy stem which generated this result transmitted reference range : 166 - 358 10*3/ ?L. The reference r dafne was not used to interpret this result as normal/abnormal . MPV (test code = 11.0 fL 9.5-12.9 38432-6) NRBC/100 WBC (test See_Comment [Automat ed code = 6913522627) message] The system which generated this result transmitted reference range : 0.0 - 10.0 /100 WBCs. The refer ence range was not u sed to interpret th is result as normal/abnormal . NRBC x10^3 (test code <0.01 See_Comment [Auto mated = 9228019785) message] The s ystem which generated this result transmitted reference range : 10*3/?L. The reference range was not used to interpret this result as normal/abnormal . GRAN MAT (NEUT) % 65.7 % (test code = 770-8) IMM GRAN % (test code 0.60 % = 3736037025) LYMPH % (test code = 26.5 % 736-9) MONO % (test code = 5.2 % 5905-5) EOS % (test code = 1.0 % 713-8) BASO % (test code = 1.0 % 706-2) GRAN MAT x10^3(ANC) 4.77 10*3/uL 1.88-7.09 (test code = 6986692019) IMM GRAN x10^3 (test 0.04 10*3/uL 0.00-0.06 code = 4747912680) LYMPH x10^3 (test code 1.92 10*3/uL 1.32-3.29 = 731-0) MONO x10^3 (test code 0.38 10*3/uL 0.33-0.92 = 742-7) EOS x10^3 (test code = 0.07 10*3/uL 0.03-0.39 711-2) BASO x10^3 (test code 0.07 10*3/uL 0.01-0.07 = 704-7) Lab Interpretation Abnormal (test code = 61661-5) [id number] 15:08:00 Test Item Value Reference Range Interpretation Comments HGBA1C% (test code = HGBA1C%) 5.8 %A1C 4.8-6.0 N ESTIMATED AVERAGE GLUCOSE (test 120 MG/DL code = EAG) COVID 19 Asymptomatic IH [id number] 13:28:00 Test Item Value Reference Range Interpretation Comments COVID 19 NEGATIVE NEGATIVE Negative result s should be Asymptomatic IH AG treated a s presumptive and (test code = ifinconsistent with COVNONPUIAG) clinical signs and symptoms, or ne cessaryfor patient managem ent, should be tested with an alternativemole cular assay. Negative results do not preclude CJOB-ViY-5bzggo tion and should not be u sed as the sole basis forp atient management deci sions. Negative result s should beconsidered in the context of a pa tient's recent exposure s,history, presence of cli nical signs and symptoms consistentwith COVID-19. PROTHROMBIN [id number] 12:26:00 Test Item Value Reference Range Interpretation Comments PROTHROMBIN TIME 12.6 SECONDS 9.9-12.8 N PATIENT (test code = PTP) INTERNATIONAL NORMAL 1.1 0.89-1.14 N THE INR IS TO BE USED RATIO (test code = ONLY FOR MONITORING INR) ORAL ANTICOAGULANTTH ERAPY. THE FOLLOWING A RE SUGGESTED RANGE S FROM [facility]ST[facility] LE[facility] OF [facility]ST PHYSICIANS:FRITZ CATION INR VALUEPROPHYLAXI S OF VENOUS THROMBOS IS (ORTHOPEDIC JAY CHAD) 2.0 - 3.0PROP HYLAXIS OF VENOUS THROM BOSIS (OTHER THAN HIG H-RISK SURGERY) 2.0 - 3.0TRE ATMENT OF DEEP VEIN THROMBOSIS OR PULMONARY EMBOL ISM 2.0 - 3.0PREV ENTION OF SYSTEMIC EMB OLISM TISSUE HEART VA LVES 2.0 - 3.0 AC CELSA MYOCARDIAL INFA RCTION (TO PREVENT SYSTEMIC EMBOLI SM) 2.0 - 3.0 ACUTE MYOCARDIA L INFARCTION (TO PREVENT RECURRE NT INFARCT) 2.5 - 3.0 VALV ULAR HEART DISEASE 2.0 - 3.0 ATRIAL FIBRILATION 2.0 - 3.0BILEAFLET MECHANICAL VALV E IN AORTIC POSITION 2.0 - 3.0MECHAN ICAL PROSTHETIC VALV ES (HIGH RISK) 2.5 - 3.5PRESEN CE OF LUPUS ANTICOAGU LANT OR ANTIPHOSPHOLIP ID ANTIBODIES 2.5 - 3 .5 THROMBOPLASTIN TIME [id number] 12:26:00 Test Item Value Reference Range Interpretation Comments THROMBOPLASTIN TIME 38.40 SECONDS 25.86-36.07 H [facility] PARTIAL (test code = Therape utic Range - PTT) APTT of 55.8-85 .4 secondscorrelat es with plasma heparin concentration o f 0.2-0.4 u/mL Ne w range effective - BASIC METABOLIC [id number] 12:16:00 Test Item Value Reference Range Interpretation Comments SODIUM (test code = NA) 141 mmol/l 134.0-147.0 N POTASSIUM (test code = K) 3.6 mmol/L 3.6-5.2 N CHLORIDE (test code = CL) 105 mmol/l 98.0-107.0 N CARBON DIOXIDE (test code = CO2) 28.9 mmol/l 21.0-33.0 N ANION GAP (test code = GAP) 10.7 0-20 N GLUCOSE (test code = GLU) 116 mg/dl 70.0-110.0 H BLOOD UREA NITROGEN (test code = 10 mg/dl 7.0-18.0 N BUN) CREATININE (test code = CREAT) 0.79 mg/dL 0.60-1.30 N GFR NON BLACK (test code = 81 mL/min 90-95 L GFRNONBLACK) GFR BLACK (test code = GFRBLACK) 98 mL/min 109-115 L CALCIUM (test code = CA) 9.0 mg/dl 8.0-10.5 N HEPATIC FUNCTION PANEL [id number] 12:16:00 Test Item Value Reference Range Interpretation Comments TOTAL PROTEIN (test code = PROT) 7.2 gm/dL 6.4-8.2 N ALBUMIN (test code = ALB) 3.8 gm/dl 3.2-4.7 N BILIRUBIN TOTAL (test code = 0.4 mg/dl 0.0-1.0 N BILT) BILIRUBIN DIRECT (test code = 0.1 mg/dl 0.0-0.3 N BILD) SGOT/AST (test code = AST) 14 Units/L 15-37 L SGPT/ALT (test code = ALT) 21 Units/L 12.0-78.0 N ALKALINE PHOSPHATASE TOTAL (test 101 Units/L 50.0-136.0 N code = ALKP) [id number] 12:16:00 Test Item Value Reference Range Interpretation Comments LIPASE (test code = LIP) 56 Units/L 65.0-230.0 L [id number] 12:16:00 Test Item Value Reference Range Interpretation Comments MAGNESIUM (test code = MAG) 2.3 mg/dl 1.8-2.4 N B-TYPE NATRIURETIC [id number] 12:16:00 Test Item Value Reference Range Interpretation Comments B-TYPE NATRIURETIC PEPTIDE (test 6.8 PG/ML 5-100 N code = BNP) [id number] 12:16:00 Test Item Value Reference Range Interpretation Comments TROPONIN-I (test <0.02 NG/ML 0.00-0.06 N REFERENCE R DAFNE code = TROPI) TROPONIN I HEA LTHY INDIVIDUALS: < 0.06 ng/mL R/O ISCHE NATHANIEL: 0.07 - 0.60 ng/ mL CUT-OFF RANGE F OR AMI: 0.60 - 1.5 ng/m L CBC W/AUTO [id number] 11:54:00 Test Item Value Reference Range Interpretation Comments WHITE BLOOD CELL (test code = 7.8 K/mm3 4.5-11.0 N WBC) RED BLOOD CELL (test code = 4.67 M/mm3 3.80-5.20 N RBC) HEMOGLOBIN (test code = HGB) 13.6 gm/dL 12.0-16.0 N HEMATOCRIT (test code = HCT) 42.5 % 36.0-48.0 N MEAN CELL VOLUME (test code = 91.0 UM3 82.0-99.0 N MCV) MEAN CELL HGB (test code = MCH) 29.1 UUG 25.5-32.5 N MEAN CELL HGB CONCETRATION 32.0 gm/dL 29.0-35.5 N (test code = MCHC) RED CELL DISTRIBUTION WIDTH 14.4 % 11.5-15.0 N (test code = RDW) RED CELL DISTRIBUTION WIDTH SD 47.6 fL 34.8-50.2 N (test code = RDW-SD) PLATELET COUNT (test code = 238 K/mm3 150-400 N PLT) MEAN PLATELET VOLUME (test code 10.7 fl 7.4-10.4 H = MPV) NEUTROPHIL % (test code = NT%) 67.3 % 49.0-76.0 N IMMATURE GRANULOCYTE % (test 0.3 % 0.0-0.4 N code = IG%) LYMPHOCYTE % (test code = LY%) 17.0 % 23.0-38.0 L MONOCYTE % (test code = MO%) 6.7 % 1.0-10.0 N EOSINOPHIL % (test code = EO%) 7.3 % 1.0-5.0 H BASOPHIL % (test code = BA%) 1.4 % 0.0-1.0 H NUCLEATED RBC % (test code = 0.0 % 0.0-0.1 N NRBC%) NEUTROPHIL # (test code = NT#) 5.2 K/mm3 2.4-6.3 N IMMATURE GRANULOCYTE # (test 0.02 x10 3/uL 0.00-0.07 N code = IG#) LYMPHOCYTE # (test code = LY#) 1.3 K/mm3 1.2-4.0 N MONOCYTE # (test code = MO#) 0.5 K/mm3 0.0-0.6 N EOSINOPHIL # (test code = EO#) 0.6 K/MM3 0.0-0.7 N BASOPHIL # (test code = BA#) 0.1 K/mm3 0.0-0.2 N NUCLEATED RBC # (test code = 0.00 X10 3uL 0.00-0.01 N NRBC#) - XR CHEST 1 [id number] 11:39:00 [facility] 1970 Sex: F FAX: Jean Claude Cerna MD [place]: St: REG FAX: Ronnell Marte MD Name: MIGUEL FRAGA [facility] : 1970 Age/S: 50/F [address] Unit #: [id number] Loc: E.ERS2 [place], [place] Phys: [place] [id number] Acct: [id number] Dis Date: Status: REG ER PHONE #: [phone] Exam Date: 04/10/2021 1130 FAX #: [phone] Reason: SOB EXAMS: CPT CODE: [id number] XR CHEST 1 V 22066 HISTORY: Shortness of breath Location: C3 COMPARISON:06/19/2020 FINDINGS: Heart size and vascularity are within normal limits. The lungs are clear of focal consolidation. No effusion, pneumothorax, or acute osseous abnormality. IMPRESSION: 1. Stable chest. No focal consolidation. at 1139 Reported and signed by: Keanu Dillon M.D. CC: Jean Claude Cerna MD; Ronnell Valle MD Technologist: DYLON OTT Trnscrd Date/Time/By: 04/10/2021 (5297) : By: [email or web address] PAGE 1 Signed Report FAX: Jean Claude Cerna MD [place]: St: REG FAX: Y Ronnell Valle MD Name: MIGUEL FRAGA [facility] : 1970 Age/S: 50/F [address] Unit #: [id number] Loc: [address] Phys: [place] [id number] Acct: [id number] Dis Date: Status: REG ER PHONE #: [phone] Exam Date: 04/10/20210 FAX #: [phone] Reason: SOB EXAMS: CPT CODE: [id number] XR CHEST 1 V 88407 <Continued> Orig Print D/T: S: 04/10/2021 (9971) PAGE 2 Signed [id number] 19:17:12 Test Item Value Reference Interpretation Comments Range D-DIMER (test code = See_Comment H [Autom ated [id number]) message] The system which generated this result transmitted reference range : <0.41 ?g/mL (FEU). The reference range was not used to interpret this result as normal/abnormal . ILDEFONSO (test code = This test may be ILDEFONSO) used in conjunction with a clinical pretest probability (PTP) assessment model to exclude venous thromboembolism (VTE) in patients suspected of deep venous thrombosis (DVT) and pulmonary embolism (PE) A D-Dimer value less than 0.50 ?g/ml (FEU) has a negative predicative value of 96 to 100% (95% CI)and 97 to 100% (95% CI) as an aid in the diagnosis of deep vein thrombosis (DVT) and pulmonary embolism when there is low or moderate pretest probability of PE or DVT. D-Dimer values are expressed in initial fibrinogen equivalent units (FEU)" The assay results should be used with other information, including the clinical context, in forming a diagnosis. Lab Interpretation Abnormal (test code = 12625-2) [facility]anoD-[id number] 19:17:12 Test Item Value Reference Interpretation Comments Range D-DIMER (test code = See_Comment H [Autom ated [id number]) message] The system which generated this result transmitted reference range : <0.41 ?g/mL (FEU). The reference range was not used to interpret this result as normal/abnormal . ILDEFONSO (test code = This test may be ILDEFONSO) used in conjunction with a clinical pretest probability (PTP) assessment model to exclude venous thromboembolism (VTE) in patients suspected of deep venous thrombosis (DVT) and pulmonary embolism (PE) A D-Dimer value less than 0.50 ?g/ml (FEU) has a negative predicative value of 96 to 100% (95% CI)and 97 to 100% (95% CI) as an aid in the diagnosis of deep vein thrombosis (DVT) and pulmonary embolism when there is low or moderate pretest probability of PE or DVT. D-Dimer values are expressed in initial fibrinogen equivalent units (FEU)" The assay results should be used with other information, including the clinical context, in forming a diagnosis. Lab Interpretation Abnormal (test code = 18058-9) [facility] [id number] 19:01:39 Test Item Value Reference Interpretation Comments Range TROPONIN I (test 0.002 ng/mL See_Comment [Automated code = 0414498482) message] The system which generated this result transmitted reference range : <=0.034. The reference range was not used to interpret this result as normal/abnormal . ILDEFONSO (test code = Reference (Normal) ILDEFONSO) Range (defined by the 99th percentile reference limit): <= 0.034 ng/mL Note: Cardiac troponin begins to rise 3-4 hours after the onset of ischemia. Repeat in 4-6 hours if the sample was drawn within 3-4 hours of the onset of the symptom and found normal. Diagnosis of myocardial injury is made with acute changes in cTn concentrations with at least one serial sample above the 99th percentile upper reference limit (URL), taken together with the patient's clinical presentation. Biotin has been reported to cause a negative bias, interpret results relative to patient's use of biotin. Lab Interpretation Normal (test code = 38893-9) [id number]:01:39 Test Item Value Reference Interpretation Comments Range TROPONIN I (test 0.002 ng/mL See_Comment [Automated code = 0039305671) message] The system which generated this result transmitted reference range : <=0.034. The reference range was not used to interpret this result as normal/abnormal . ILDEFONSO (test code = Reference (Normal) ILDEFONSO) Range (defined by the 99th percentile reference limit): <= 0.034 ng/mL Note: Cardiac troponin begins to rise 3-4 hours after the onset of ischemia. Repeat in 4-6 hours if the sample was drawn within 3-4 hours of the onset of the symptom and found normal. Diagnosis of myocardial injury is made with acute changes in cTn concentrations with at least one serial sample above the 99th percentile upper reference limit (URL), taken together with the patient's clinical presentation. Biotin has been reported to cause a negative bias, interpret results relative to patient's use of biotin. Lab Interpretation Normal (test code = 80884-3) [facility] [id number] 18:58:20 Test Item Value Reference Range Interpretation Comments NT-proBNP (test code 42 pg/mL See_Comment [Autom ated = 3010372964) message] The system which generated this result transmitted reference range : <=125. The reference range was not used to interpret this result as normal/abnormal . ILDEFONSO (test code = ILDEFONSO) Biotin has been reported to cause a negative bias, interpret results relative to patient's use of biotin. Lab Interpretation Normal (test code = 05741-7) [facility] [id number] 18:58:20 Test Item Value Reference Range Interpretation Comments NT-proBNP (test code 42 pg/mL See_Comment [Autom ated = 1895698121) message] The system which generated this result transmitted reference range : <=125. The reference range was not used to interpret this result as normal/abnormal . ILDEFONSO (test code = ILDEFONSO) Biotin has been reported to cause a negative bias, interpret results relative to patient's use of biotin. Lab Interpretation Normal (test code = 03292-9) [facility]. METABOLIC PANEL ([id number])2021-03-01 18:49:40 Test Item Value Reference Range Interpretation Comments NA (test code = 139 mmol/L 135-145 3396942375) K (test code = 4.0 mmol/L 3.5-5.0 6553932155) CL (test code = 105 mmol/L 98-108 0396777817) CO2 TOTAL (test code 26 mmol/L 23-31 = 1790147659) AGAP (test code = 2-16 1543725431) BUN (test code = 13 mg/dL 7-23 2834398975) GLUCOSE (test code = 91 mg/dL 70-110 1861248362) CREATININE (test code 0.70 mg/dL 0.50-1.04 = 9510140727) TOTAL BILI (test code 0.5 mg/dL 0.1-1.1 = 0989617720) CALCIUM (test code = 10.2 mg/dL 8.6-10.6 9371809344) T PROTEIN (test code 7.7 g/dL 6.3-8.2 = 9717530609) ALBUMIN (test code = 4.5 g/dL 3.5-5.0 4806279238) ALK PHOS (test code = 109 U/L 34-122 7659500520) ALTv (test code = 16 U/L 5-35 1742-6) AST(SGOT) (test code 20 U/L 13-40 = 1347658767) eGFR (test code = mL/min/1.73m2 0236616117) ILDEFONSO (test code = ILDEFONSO) Association of Glomerular Filtration Rate (GFR) and Staging of Kidney Disease* + + +- +| GFR (mL/min/1.73 m2) ?| With Kidney Damage ?| ?Without Kidney Damage+ ------+ ----+ ------+| ?>90 ?| ?Stage one ?| ? Normal ?+ -+ + -+| ?60-89 ?| ?Stage two ?| ? Decreased GFR ? + + +- +| ?30-59 ?| ?Stage three ?| ? Stage three ? + + +- +| ?15-29 ?| ?Stage four ? | ? Stage four ?+ -+ + -+| ?<15 (or dialysis) ? ?| ?Stage five ? | ? Stage five ?+ -+ + -+ *Each stage assumes the associated GFR level has been in effect for at least three months. ?Stages 1 to 5, with or without kidney disease, indicate chronic kidney disease. Notes: Determination of stages one and two (with eGFR >59mL/min/1.73 m2) requires estimation of kidney damage for at least three months as defined by structural or functional abnormalities of the kidney, manifested by either:Pathological abnormalities or Markers of kidney damage (including abnormalities in the composition of the blood or urine or abnormalities in imaging tests). [facility]. METABOLIC PANEL ([id number])2021-03-01 18:49:40 Test Item Value Reference Range Interpretation Comments NA (test code = 139 mmol/L 135-145 7874432554) K (test code = 4.0 mmol/L 3.5-5.0 8338805302) CL (test code = 105 mmol/L 98-108 7910768136) CO2 TOTAL (test code 26 mmol/L 23-31 = 6949862620) AGAP (test code = 2-16 6003738981) BUN (test code = 13 mg/dL 7-23 2595286556) GLUCOSE (test code = 91 mg/dL 70-110 5784944444) CREATININE (test code 0.70 mg/dL 0.50-1.04 = 9780795371) TOTAL BILI (test code 0.5 mg/dL 0.1-1.1 = 1936788123) CALCIUM (test code = 10.2 mg/dL 8.6-10.6 0490579434) T PROTEIN (test code 7.7 g/dL 6.3-8.2 = 0046659658) ALBUMIN (test code = 4.5 g/dL 3.5-5.0 5671134364) ALK PHOS (test code = 109 U/L 34-122 1428899387) ALTv (test code = 16 U/L 5-35 2-6) AST(SGOT) (test code 20 U/L 13-40 = 5762939909) eGFR (test code = mL/min/1.73m2 8830585501) ILDEFONSO (test code = ILDEFONSO) Association of Glomerular Filtration Rate (GFR) and Staging of Kidney Disease* + + +- +| GFR (mL/min/1.73 m2) ?| With Kidney Damage ?| ?Without Kidney Damage+ ------+ ----+ ------+| ?>90 ?| ?Stage one ?| ? Normal ?+ -+ + -+| ?60-89 ?| ?Stage two ?| ? Decreased GFR ? + + +- +| ?30-59 ?| ?Stage three ?| ? Stage three ? + + +- +| ?15-29 ?| ?Stage four ? | ? Stage four ?+ -+ + -+| ?<15 (or dialysis) ? ?| ?Stage five ? | ? Stage five ?+ -+ + -+ *Each stage assumes the associated GFR level has been in effect for at least three months. ?Stages 1 to 5, with or without kidney disease, indicate chronic kidney disease. Notes: Determination of stages one and two (with eGFR >59mL/min/1.73 m2) requires estimation of kidney damage for at least three months as defined by structural or functional abnormalities of the kidney, manifested by either:Pathological abnormalities or Markers of kidney damage (including abnormalities in the composition of the blood or urine or abnormalities in imaging tests). [facility] [id number] 20:47:00 Test Item Value Reference Range Interpretation Comments TOTAL PROTEIN (test code = PROT) 7.0 gm/dL 6.4-8.2 N ALBUMIN (test code = ALB) 3.6 gm/dl 3.2-4.7 N BILIRUBIN TOTAL (test code = BILT) 0.3 mg/dl 0.0-1.0 N BILIRUBIN DIRECT (test code = 0.1 mg/dl 0.0-0.3 N BILD) SGOT/AST (test code = AST) 16 Units/L 15-37 N SGPT/ALT (test code = ALT) 22 Units/L 12.0-78.0 N ALKALINE PHOSPHATASE TOTAL (test 98 Units/L 50.0-136.0 N code = ALKP) [id number] 20:47:00 Test Item Value Reference Range Interpretation Comments TROPONIN-I (test <0.02 NG/ML 0.00-0.06 N REFERENCE R DAFNE code = TROPI) TROPONIN I HEA LTHY INDIVIDUALS: < 0.06 ng/mL R/O ISCHE NATHANIEL: 0.07 - 0.60 ng/ mL CUT-OFF RANGE F OR AMI: 0.60 - 1.5 ng/m L BASIC METABOLIC [id number] 20:47:00 Test Item Value Reference Range Interpretation Comments SODIUM (test code = NA) 145 mmol/l 134.0-147.0 N POTASSIUM (test code = K) 3.7 mmol/L 3.6-5.2 N CHLORIDE (test code = CL) 108 mmol/l 98.0-107.0 H CARBON DIOXIDE (test code = CO2) 28.7 mmol/l 21.0-33.0 N ANION GAP (test code = GAP) 12.0 0-20 N GLUCOSE (test code = GLU) 92 mg/dl 70.0-110.0 N BLOOD UREA NITROGEN (test code = 11 mg/dl 7.0-18.0 N BUN) CREATININE (test code = CREAT) 1.04 mg/dL 0.60-1.30 N GFR NON BLACK (test code = 59 mL/min 90-95 L GFRNONBLACK) GFR BLACK (test code = GFRBLACK) 72 mL/min 109-115 L CALCIUM (test code = CA) 8.0 mg/dl 8.0-10.5 N BASIC METABOLIC [id number] 20:46:00 Test Item Value Reference Range Interpretation Comments SODIUM (test code = NA) 145 mmol/l 134.0-147.0 N POTASSIUM (test code = K) 3.7 mmol/L 3.6-5.2 N CHLORIDE (test code = CL) 108 mmol/l 98.0-107.0 H CARBON DIOXIDE (test code = CO2) 28.7 mmol/l 21.0-33.0 N ANION GAP (test code = GAP) 12.0 0-20 N GLUCOSE (test code = GLU) mg/dl 70.0-110.0 BLOOD UREA NITROGEN (test code = mg/dl 7.0-18.0 BUN) CREATININE (test code = CREAT) mg/dL 0.60-1.30 GFR NON BLACK (test code = mL/min 90-95 GFRNONBLACK) GFR BLACK (test code = GFRBLACK) mL/min 109-115 CALCIUM (test code = CA) mg/dl 8.0-10.5 HEPATIC FUNCTION PANEL [id number] 20:46:00 Test Item Value Reference Range Interpretation Comments TOTAL PROTEIN (test code = PROT) gm/dL 6.4-8.2 ALBUMIN (test code = ALB) gm/dl 3.2-4.7 BILIRUBIN TOTAL (test code = BILT) mg/dl 0.0-1.0 BILIRUBIN DIRECT (test code = BILD) mg/dl 0.0-0.3 SGOT/AST (test code = AST) Units/L 15-37 SGPT/ALT (test code = ALT) Units/L 12.0-78.0 ALKALINE PHOSPHATASE TOTAL (test Units/L 50.0-136.0 code = ALKP) [id number] 20:46:00 Test Item Value Reference Range Interpretation Comments TROPONIN-I (test code = TROPI) NG/ML 0.00-0.06 CBC W/AUTO [id number] 20:28:00 Test Item Value Reference Range Interpretation Comments WHITE BLOOD CELL (test code = 7.0 K/mm3 4.5-11.0 N WBC) RED BLOOD CELL (test code = 4.78 M/mm3 3.80-5.20 N RBC) HEMOGLOBIN (test code = HGB) 13.7 gm/dL 12.0-16.0 N HEMATOCRIT (test code = HCT) 45.0 % 36.0-48.0 N MEAN CELL VOLUME (test code = 94.1 UM3 82.0-99.0 N MCV) MEAN CELL HGB (test code = MCH) 28.7 UUG 25.5-32.5 N MEAN CELL HGB CONCETRATION 30.4 gm/dL 29.0-35.5 N (test code = MCHC) RED CELL DISTRIBUTION WIDTH 14.6 % 11.5-15.0 N (test code = RDW) RED CELL DISTRIBUTION WIDTH SD 50.5 fL 34.8-50.2 H (test code = RDW-SD) PLATELET COUNT (test code = 310 K/mm3 150-400 N PLT) MEAN PLATELET VOLUME (test code 10.5 fl 7.4-10.4 H = MPV) NEUTROPHIL % (test code = NT%) 44.0 % 49.0-76.0 L IMMATURE GRANULOCYTE % (test 0.1 % 0.0-0.4 N code = IG%) LYMPHOCYTE % (test code = LY%) 38.3 % 23.0-38.0 H MONOCYTE % (test code = MO%) 7.3 % 1.0-10.0 N EOSINOPHIL % (test code = EO%) 9.2 % 1.0-5.0 H BASOPHIL % (test code = BA%) 1.1 % 0.0-1.0 H NUCLEATED RBC % (test code = 0.0 % 0.0-0.1 N NRBC%) NEUTROPHIL # (test code = NT#) 3.1 K/mm3 2.4-6.3 N IMMATURE GRANULOCYTE # (test 0.01 x10 3/uL 0.00-0.07 N code = IG#) LYMPHOCYTE # (test code = LY#) 2.7 K/mm3 1.2-4.0 N MONOCYTE # (test code = MO#) 0.5 K/mm3 0.0-0.6 N EOSINOPHIL # (test code = EO#) 0.6 K/MM3 0.0-0.7 N BASOPHIL # (test code = BA#) 0.1 K/mm3 0.0-0.2 N NUCLEATED RBC # (test code = 0.00 X10 3uL 0.00-0.01 N NRBC#) - CHEST 2 [id number] 14:09:00 [facility] 1970 Sex: F FAX: Ronnell Ott MD [place]: EM St: REG Name: MIGUEL FRAGA [facility] : 1970 Age/S: 49/F [address] [facility] Unit #: [id number] Loc: [place], [place]: [place] [address] Acct: [id number] Dis Date: Status: REG CLI PHONE #: [phone] Exam Date: 06/19/2020 1400 FAX #: [phone] Reason: COUGH EXAMS: CPT CODE: [id number] XR CHEST 2 V 28606 EXAM: CHEST 2 VIEWS INDICATION:COUGH LOCATION: B2 COMPARISON: January 22, 2019 TECHNIQUE: PA and lateral views of the chest. FINDINGS: The heart size is normal. The lungs are clear bilaterally. The pulmonary vasculature is normal. No pneumothorax or pleural effusion is identified. The osseous structures are normal. IMPRESSION: No acute cardiopulmonary process. at 1409 Reported and signed by: Emi Quintanilla M.D. CC: Ronnell Valle MD Technologist: HIRAL GAMEZ Trnscrd Date/Time/By: 06/19/2020(4331) : By: [email or web address] PAGE 1 Signed Report FAX: Ronnell Ott MD [place]: EM St: REG Name: MIGUEL FRAGA [facility] : 1970 Age/S: 49/F [address] [email or web address] Unit #: [id number] Loc: [place], [place]: [place] [address] Acct: [id number] Dis Date: Status: REG CLI PHONE #: [phone] Exam Date: 06/19/2020 1400 FAX #: [phone] Reason: COUGH EXAMS: CPT CODE: [id number] XR CHEST 2 V 20157 <Continued> Orig Print D/T: S: 06/19/2020 (5572) PAGE 2 Signed ReportXR CHEST 2 VW COVID 2019-09-16 23:00:24 No acute intrathoracic abnormality, specifically no detectable radiographicfindings to suggest COVID-19 pneumonia. Disclaimer: Generally, the findings on chest imaging in COVID-19 are notspecific, and overlap with other infections, including influenza, H1N1,SARS and MERS.According to the Centers forDisease Control (CDC) and recent statement ofthe [employer], viral testing remains the only specificmethod of diagnosis. Confirmation with the viral test is required, even ifradiologic findings are suggestive of COVID-[address]. Preliminary Report Dictated by Resident: Daniel Che MD., have reviewed this study and agree with the abovereport.PROCEDURE: CHEST, SINGLE VIEW CLINICAL INDICATION: cough for 1 month with failed therapies. COMPARISON: X-ray chest 1 view, 03/07/2019. FINDINGS: Lungs: No solitary or multifocal airspace opacifications are visualized.Unchanged appearance of left lower lobe and left paraspinal calcifiedmasses. No pleural effusionor pneumothorax is seen. The cardiac silhouette isnormal in size. No acute bony abnormality. Mamb, Radiant Results Inft User - 09/16/2019 6:01 PM CDTPROCEDURE: CHEST, SINGLE VIEW CLINICAL INDICATION: cough for 1 month with failed therapies. COMPARISON: X-ray chest 1 view, 03/07/2019.FINDINGS:Lungs: Nosolitary or multifocal airspace opacifications are visualized.Unchanged appearance of left lower lobe and left paraspinal calcifiedmasses.No pleural effusion or pneumothorax is seen. The cardiac silhoue tte isnormal in size.No acute bony abnormality.IMPRESSIONNo acute intrathoracic abnormality, specifically no detectable radiographicfindings to suggest COVID-19 pneumonia.Disclaimer: Generally, the findings on chest imaging in COVID-19 are notspecific, and overlap with other infections, including influenza, H1N1,SARS and MERS.According to the Centers for Disease Control (CDC) and recent statement ofthe [employer], viral testing remains the only specificmethod of diagnosis. Confirmation with the viral test is required, even ifradiologic findings are suggestive of COVID-[address]Preliminary Report Dictated by Resident: Jose Duke, Daniel Herrera MD., have reviewed this study and agree with the abovereport.[facility] L- SPINE W/O [id number] 11:07:00 FAX: Ronnell Ott MD [place]: St: REG Name: MIGUEL FRAGA [facility] : 1970 Age/S: 48/F [address] [facility] Unit#: [id number] Loc: [place], [place]: [place] [address] Acct: [id number] Dis Date: Status: REG CLI PHONE #: [phone] Exam Date: 03/08/2019 1012 FAX #: [phone] Reason: LBP EXAMS: CPT CODE: [id number] MRI L-SPINE W/O CONT 35818 REASON FOR EXAM: Low back pain numbness in the legs, work related injury. MRI of the lumbar spine, unenhanced. T1, T2 and STIR sagittal images are obtained. The lower thoracic spine intact with normal spinal cord appearancein diameter. The lumbar spine is well aligned. Well-maintained disc spaces are seen with slight desiccation beginning at the L4-5 and L5-S1 levels of 75 lumbar type vertebral bodies. Minimal annular bulges are seen at these levels. No spinal stenosis or obvious HNP. Aortic diameter intact. Normal marrow signal. The axial images areobtained all levels with the L1-2 level appearing to be normal. L2-3 intact withnormal facets, no spinal stenosis evident nor foraminal narrowing. No evidence of HNP. L3-4 with no evidence of HNP, central canal stenosis or foraminal narrowing. Facets with minimal degenerative changes. The L4-5 level also with minimal annular bulge changesbut no foraminal narrowing or HNP. Minimal facet arthrosis with a tiny amount of fluid in the joint spaces. L5-S1 with a mild asymmetry of the disc bulge, fairly broad-based in the paracentral level extending to the right foramina possibly qualifying as a broad-based disc protrusion. This measures 12 mm transverse but only to 3 mm AP The left foramina is normal. Right foramina with no significant narrowing produced. There could be subtle displacement of the right S1 nerve rootlet. Minimal facet arthrosis. IMPRESSION:No evidence of acute marrow edema or subluxation. Good alignment in the spine. Broad-based right paracentral and foraminal disc protrusion at the L5-S1 level. No foraminal narrowing seen. Location: U19 PAGE 1 Signed Report (CONTINUED) FAX: Ronnell Ott MD [place]: St: REG -- Name: MIGUEL FRAGA [facility] : 1970 Age/S: 48/F [address] [facility] Unit #: [id number] Loc: E.[place], [place]: [place] [address] Acct: [id number] Dis Date: Status: REG CLI PHONE #: [phone] Date: 03/08/2019 1012 FAX #: [phone] Reason: LBP EXAMS: CPT CODE: [id number] MRI L-SPINE W/O CONT 63183 <Continued> at 1107 Reported and signed by: Keanu Gaspar M.D. CC: Ronnell Valle MDTechnologist: CLAYTON SAL Trnscrd Date/Time/By: 03/08/2019 (8549) : By: [facility] PAGE 2 Signed Report FAX: Ronnell Ott MD [place]: EM St: REG Name: MIGUEL FRAGA [facility] : 1970 Age/S: 48/F [address] [facility] Unit #: [id number] Loc: E.[place], [place]: [place] [address] Acct: [id number] Dis Date: Status: REG CLI PHONE #: [phone] Exam Date: 03/08/2019 1012 FAX #: [phone] Reason: LBP EXAMS: CPT CODE: [id number] MRI L-SPINE W/O CONT 04803 <Continued> Orig Print D/T: S: 03/08/2019 (1110) PAGE 3 Signed Report- XR FOOT 3 + V [id number] 12:00:00 FAX: Ronnell Ott MD [place]: EM St: REG Name: [facility] 1970 Age/S: 48/F [address] [facility] Unit#: [id number] Loc: [place], [place]: [place] [address] Acct: [id number] Dis Date: Status: REG CLI PHONE #: [phone] Exam Date: 01/22/2019 1145 FAX #: [phone] Reason: PAIN IN RT. FOOT..... EXAMS: CPT CODE: [id number] XR FOOT 3 + V RT [address] EXAM: - XR FOOT 3 + V RT HISTORY: PAIN IN RT. FOOT..... Location code:C3 COMPARISON: None available time of interpretation. FINDINGS: AP, oblique, and lateral view of the right foot is provided. There is no acute fracture or malalignment. The osseous structures are intact. IMPRESSION: No acute osseous abnormality. at 1200 Reported and signed by: Mac Vicente M.D. CC: Ronnell Valle MD Technologist: DANIELA ESPOSITO [facility] Date/Time/By: 01/22/2019 (1200) : By: [email or web address] PAGE 1 Signed Report FAX: Ronnell Ott MD [place]: St: REG-- Name: MIGUEL FRAGA [facility] : 1970 Age/S: 48/F [address] Unit #: [id number] Loc: [place], [place]: [place] [address] Acct: [id number] Dis Date: Status: REG CLI PHONE #: [phone] Exam Date: 01/22/2019 1145 FAX #: [phone] Reason: PAIN IN RT. FOOT..... EXAMS: CPT CODE: [id number] XR FOOT 3 + V RT 42915 <Continued> Orig Print D/T: S: 01/22/2019 (6501) PAGE 2 Signed Report- XR CHEST 2 [id number] 11:56:00 FAX: Ronnell Ott MD [place]: St: REG Name: MIGUEL FRAGA [facility] : 1970 Age/S: 48/F [address] [email or web address] Unit#: [id number] Loc: [place], [place]: [place] [address] Acct: [id number] Dis Date: Status: REG CLI PHONE #: [phone] Exam Date: 01/22/2019 1145 FAX #: [phone] Reason: COPD,TOBACCO USE..... EXAMS: CPT CODE: [id number] XR CHEST 2 V 31303 Location code: B2 HISTORY: COPD, tobacco use TECHNIQUE: Frontal and lateral views of the chest were obtained. FINDINGS: The cardiomediastinal silhouette is unremarkable. The trachea is midline. The lungs are clear. Suggestion of calcified granulomas in the left lung. There is no effusion or pneumothorax. The bones are intact. IMPRESSION: No acute pulmonary process. Suggestion of granulomatous disease. at 1156 Reported and signed by: Osmar Gentile M.D. CC: Ronnell Valle MD Technologist: DANIELA HUTTON; ROSALINO ESPOSITO Trnmtrd Date/Time/By: 01/22/2019 (9958) : By: [email or web address] PAGE 1 Signed Report FAX: Ronnell Ott MD [place]: St: REG -- Name: MIGUEL FRAGA [facility] : 1970 Age/S: 48/F [address] [email or web address] Unit #: [id number] Loc: E.[place], [place]: [place] [address] Acct: [id number] Dis Date: Status: REG CLI PHONE #: [phone] Exam Date: 01/22/2019 1145 FAX #: [phone] Reason: COPD,TOBACCO USE..... EXAMS: CPT CODE: [id number] XR CHEST 2 V 37460 <Continued> Orig Print D/T: S: 01/22/2019 (1180) PAGE 2 Signed Report- XR L-SPINE 2/3 VIEWS 2019-01-22 11:46:00 FAX: Ronnell Ott MD [place]: EM St: REG Name: MIGUEL FRAGA [facility] : 1970 Age/S: 48/F [address] [email or web address] Unit#: [id number] Loc: E.[place], [place]: [place] [address] Acct: [id number] Dis Date: Status: REG CLI PHONE #: [phone] Exam Date: 01/22/2019 1145 FAX #: [phone] Reason: LOW BACK PAIN....... EXAMS: CPT CODE: [id number] XR L-SPINE 2/3 VIEWS 65725 EXAM: - XR L-SPINE 2/3 VIEWS HISTORY: LOW BACK P AIN....... Location code:C3 COMPARISON: None available time of interpretation. FINDINGS: AP, lateral, and spot lateral views of the lumbar spine are provided. There is no acute fracture or malalignment. Vertebral body heights are maintained. IMPRESSION: No acute osseous abnormality. at 1146 Reported and signed by: Mac Vicente M.D. CC: Ronnell Valle MD Technologist: DANIELA ESPOSITO [facility] Date/Time/By: 01/22/2019 (1146) : By: [email or web address] PAGE 1 Signed Report FAX: Ronnell Ott MD [place]: St: REG --Name: MIGUEL FRAGA [facility] : 1970 Age/S: 48/F [address] [facility] Unit #: [id number] [place]: [place], [place]: [place] [address] Acct: [id number] Dis Date: Status: REG CLI PHONE #: [phone] Exam Date: 01/22/2019 1145 FAX #: [phone] Reason: LOW BACK PAIN....... EXAMS: CPTCODE: [id number] XR L-SPINE 2/3 VIEWS 14043 <Continued> Orig Print D/T: S: 01/22/2019 (3013) PAGE 2 Signed ReportCHEST 2 VIEWS [place] [address] Patient Name: MIGUEL FRAGA MR #: [id number] : 1970 Age/Sex: 46/F Req #: [id number] Adm Physician: Ordered by: SHILO GONSALVES MD Report #: [id number] Location: ER Room/Bed: Procedure: [id number] DX/CHEST 2 VIEWS Exam Date: 04/02/17 Exam Time: 1007 REPORT STATUS: Signed EXAMINATION: CHEST 2 VIEWS 04/02/2017 9:25 AM COMPARISON: 03/30/2017 INDICATION: Cough DISCUSSION: LINES: None.LUNGS: Calcified nodules in the left lung base are unchanged. No pneumonia or pulmonary edema. PLEURA: No pleural effusion or pneumothorax. HEART AND MEDIASTINUM: The cardiomediastinal silhouette is unremarkable. BONES AND SOFT TISSUES: No acute osseous lesion. The soft tissues are normal. IMPRESSION: 1. No evidence of pneumonia or pulmonary edema. 2. Stable calcified nodules in the left lung base, likely the sequela of healed granulomatous infection. Valerie STAFFORD Signed by: Dr. Nehemias Salazar M.D. on 04/02/2017 10:38 AM Dictated By: NEHEMIAS SALAZAR MD [id number] Transcribed By: NATALIYA on 04/02/17 1038 COPY TO: SHILO GONSALVES MDCHEST SINGLE (NOT PORTABLE) [place] [id number] Patient Name: MIGUEL FRAGA MR #: [id number] : 1970 Age/Sex: 46/F Req #: [id number] [facility] Physician: Ordered by: SHILO GONSALVES MD Report #: [id number] Location: Room/Bed: Procedure: [id number] DX/CHEST SINGLE (NOT PORTABLE) Exam Date: 03/30/17 Exam Time: 1040 REPORT STATUS: Signed PROCEDURE: CHEST SINGLE (NOT PORTABLE) COMPARISON: None. INDICATIONS: COUGHING, CONGESTION FINDINGS: Lines and tubes: None Heart size normal. No focal pulmonary opacity, pleural effusion or pneumothorax. There is a 2.5 cm calcific density in the lower left paraspinal area and a 1.8 cm calcific density at the left lung base. Upper abdomen unremarkable with no free air. No acute bony abnormality. CONCLUSION: 1. No evidence for acute disease. 2. There are 2 calcific densities projected in the lower left chest. These may be further evaluated with nonco ntrast chest CT. Dictated by: Reddy Saunders M.D. on 03/30/2017 at 11:12 Electronically approved by: Reddy Saunders M.D. on 03/30/2017 at 11:12 Dictated By: REDDY SAUNDERS MD [id number] Transcribed By: JANETT on 03/30/17 1112 COPY TO: SHILO GONSALVES MD
[2021-11-01] MEDS ORDERED: predniSONE 20 MG TAB ONE (14:05)
[2021-11-01 14:20] LABS: Absolute Lymphocytes (CBC) 1.6 K/uL (0.7-4.9); Hematocrit 41.2 % (36.0-45.0); Lymphocytes % 28.7 % (15.3-44.8); MPV 8.8 fL (7.6-11.3); RBC Red Blood Cell Count 4.73 M/uL (3.86-4.86)
[2021-11-01 14:25] LABS: Potassium 3.8 mmol/L (3.5-5.1); Troponin High Sensitivity 5.4 pg/mL (<58.9)
--- NOTE | 2021-11-01 15:11 | RAD REPORT ---
EXAM DESCRIPTION: RAD - Chest Single View - 11/01/2021 2:32 pm CLINICAL HISTORY: SOB COMPARISON: CT chest June 2021 TECHNIQUE: AP portable chest image was obtained 11/01/2021 2:32 pm . FINDINGS: No acute infiltrate is seen. No interstitial edema, failure or volume overload findings. C alcification in the left paraspinal region corresponds to a dense granulomatous type calcification. T here is a 2 centimeter dense nodule in the left base also matching the densely calcified nodule on th e CT study. These are not regarded as suspicious. No worrisome lung parenchymal finding. Heart and vasculature are normal. No measurable pleural effusion and no pneumothorax. No acute bony abnormality seen. No acute aortic findings suspected. IMPRESSION: No acute cardiopulmonary process.
--- NOTE | 2021-11-01 15:45 | EDPHYS ---
Physician Documentation [facility] Name: Sveta Agrawal Age: 51 yrs Sex: Female : 1970 Arrival Date: 11/01/2021 Time: 12:36 Bed 10 Private MD: ED Physician Chuck Reyes HPI: 11/01 15:21 This 51 yrs old Female presents to ER via Ambulatory with complaints of Shortness Of ms3 Breath. 15:21 The patient has shortness of breath at rest, with light activity. Onset: The ms3 symptoms/episode began/occurred 3 day(s) ago. Duration: The symptoms are continuous. The patient's shortness of breath has no apparent modifying factors. Associated signs and symptoms: Pertinent positives: productive cough, Pertinent negatives: chest pain. Severity of symptoms: At their worst the symptoms were moderate in the emergency department the symptoms are unchanged Pain is currently a / 10. Historical: - Allergies: 13:08 TETRACYCLINES; jd3 - PMHx: 13:08 COPD; Asthma; jd3 - Immunization history:: Adult Immunizations up to date. - Social history:: Smoking status: Patient/guardian denies using tobacco, Stopped _ months ago 3. ROS: 15:21 Constitutional: Negative for fever, and chills. Neck: Negative for injury, pain, and ms3 swelling, Cardiovascular: Negative for chest pain, and palpitations. 15:21 Back: Negative for injury and pain, Skin: Negative for injury, rash, and discoloration, Psych: Negative for depression, anxiety, suicide ideation, homicidal ideation, and hallucinations. 15:21 Respiratory: Positive for shortness of breath, wheezing. 15:21 All other systems are negative. Exam: 15:21 Constitutional: This is a well developed, well nourished patient who is awake, alert, ms3 and in no acute distress. Head/Face: Normocephalic, atraumatic. Neck: Trachea midline, no cervical lymphadenopathy. Supple, full range of motion without nuchal rigidity, or vertebral point tenderness. No Meningismus. Chest/axilla: Normal chest wall appearance and motion. Nontender with no deformity. Cardiovascular: Regular rate and rhythm with a normal S1 and S2. No gallops, murmurs, or rubs. Normal PMI, no JVD. No pulse deficits. Respiratory: Lungs have equal breath sounds bilaterally, clear to auscultation and percussion. No rales, rhonchi or wheezes noted. No increased work of breathing, no retractions or nasal flaring. Abdomen/GI: Soft, non-tender, with normal bowel sounds. No distension or tympany. No guarding or rebound. No evidence of tenderness throughout. Skin: Warm, dry with normal turgor. Normal color with no rashes, no lesions, and no evidence of cellulitis. MS/ Extremity: Pulses equal, no cyanosis. Neurovascular intact. Full, normal range of motion. Psych: Awake, alert, with orientation to person, place and time. Behavior, mood, and affect are within normal limits. 15:21 ECG was reviewed by the Attending Physician. Vital Signs: 13:09 BP 125 / 66; Pulse 70; Resp 18 S; Temp 98.4(TE); Pulse Ox 97% on R/A; Weight 122.47 kg jd3 (R); Height 5 ft. 7 in. (170.18 cm) (R); Pain 0/10; 13:09 Body Mass Index 42.29 (122.47 kg, 170.18 cm) jd3 MDM: 13:36 Patient medically screened. ms3 15:21 Differential diagnosis: Chronic Obstructive Pulmonary Disease Myocardial Infarction ms3 reactive airway disease. Data reviewed: vital signs, nurses notes, lab test result(s), radiologic studies. Data interpreted: Pulse oximetry: on room air is 97 %. Interpretation: normal. Counseling: I had a detailed discussion with the patient and/or guardian regarding: the historical points, exam findings, and any diagnostic results supporting the discharge/admit diagnosis, lab results, the need for outpatient follow up, a full time staff interpreter, to return to the emergency department if symptoms worsen or persist or if there are any questions or concerns that arise at home. ED course: Discussed labs, CXR, EKG, physical exam findings with patient. Patient to follow-up with in 2 to 3 days. Patient understands and agrees with plan. All questions were answered. Return precautions discussed include worsening symptoms, or any other concerns. On reevaluation patient symptoms improved, patient is alert and oriented x4, no apparent distress, nontoxic, ambulatory in emergency department, tolerating p.o.. 11/01 13:37 Order name: Basic Metabolic Panel; Complete Time: 15:24 ms3 11/01 13:37 Order name: CBC with Diff; Complete Time: 15:24 3 11/01 13:37 Order name: Troponin HS; Complete Time: 15:24 ms3 11/01 13:37 Order name: XRAY Chest (1 view); Complete Time: 15:24 3 11/01 13:37 Order name: EKG; Complete Time: 13:38 3 11/01 13:37 Order name: EKG - Nurse/Tech; Complete Time: 15:29 3 11/01 13:37 Order name: IV Saline Lock; Complete Time: 15:29 ms3 11/01 13:37 Order name: Labs collected and sent; Complete Time: 15:3 11/01 13:37 Order name: O2 Per Protocol; Complete Time: 15: ms3 11/01 13:37 Order name: O2 Sat Monitoring; Complete Time: 15:29 ms3 EC:21 Rate is 68 beats/min. Rhythm is regular. QRS Lawrence is Normal. CO interval is normal. QRS ms3 interval is normal. Clinical impression: Normal ECG. Interpreted by me. Administered Medications: 14:02 Drug: predniSONE 40 mg Route: PO; iw Disposition Summary: 11/01/21 15:44 Discharge Ordered Location: Home ms3 Condition: Stable ms3 Diagnosis - Shortness of breath ms3 - COPD/ Chronic obstructive pulmonary disease, unspecified ms3 Followup: ms3 - With: Daniele Loera MD - When: 2 - 3 days - Reason: Recheck today's complaints Discharge Instructions: - Discharge Summary Sheet ms3 - Shortness of Breath, Adult ms3 Forms: - Medication Reconciliation Form ms3 - Thank You Letter ms3 - Antibiotic Education ms3 - Prescription Opioid Use ms3 Prescriptions: - Prednisone 20 mg Oral Tablet - take 2 tablets by ORAL route once daily for 5 days; 10 tablet; Refills: 0, ms3 Product Selection Permitted Signatures: Dispatcher [employer] Noemi Acosta RN [place] RN RN jd3 Sims, Marcus, DO DO ms3 Corrections: (The following items were deleted from the chart) 15: 13:37 Cardiac monitoring ordered. ms3 iw
--- NOTE | 2021-11-01 15:45 | ER ---
Nurse's Notes [facility] Name: Sveta Agrawal Age: 51 yrs Sex: Female : 1970 Arrival Date: 11/01/2021 Time: 12:36 Bed 10 Private MD: Diagnosis: Shortness of breath;COPD/ Chronic obstructive pulmonary disease, unspecified Presentation: 11/01 13:07 Chief complaint: Patient states: "I am having shortness of breath. I am also out of my jd3 medication. I did a breathing treatment, but I have not been able to catch my breath since.". Coronavirus screen: At this time, the client does not indicate any symptoms associated with coronavirus-19. Ebola Screen: No symptoms or risks identified at this time. Initial Sepsis Screen: Does the patient meet any 2 criteria? No. Patient's initial sepsis screen is negative. Does the patient have a suspected source of infection? No. Patient's initial sepsis screen is negative. Risk Assessment: Do you want to hurt yourself or someone else? Patient reports no desire to harm self or others. Onset of symptoms was November 01, 2021. 13:07 Method Of Arrival: Ambulatory jd3 13:07 Acuity: LAURY 3 jd3 Historical: - Allergies: 13:08 TETRACYCLINES; jd3 - PMHx: 13:08 COPD; Asthma; jd3 - Immunization history:: Adult Immunizations up to date. - Social history:: Smoking status: Patient/guardian denies using tobacco, Stopped _ months ago 3. Screenin:57 Abuse screen: Denies threats or abuse. Denies injuries from another. Nutritional ww screening: No deficits noted. Tuberculosis screening: No symptoms or risk factors identified. Fall Risk None identified. Assessment: 15:57 General: Appears in no apparent distress. comfortable, Behavior is calm, cooperative. ww Pain: Denies pain. Neuro: Level of Consciousness is awake, alert, obeys commands, Oriented to person, place, time, situation, Moves all extremities. Speech is normal. Cardiovascular: Patient's skin is warm and dry. Respiratory: Airway is patent Respiratory effort is even, unlabored, Respiratory pattern is regular, symmetrical. Vital Signs: 13:09 BP 125 / 66; Pulse 70; Resp 18 S; Temp 98.4(TE); Pulse Ox 97% on R/A; Weight 122.47 kg jd3 (R); Height 5 ft. 7 in. (170.18 cm) (R); Pain 0/10; 13:09 Body Mass Index 42.29 (122.47 kg, 170.18 cm) jd3 ED Course: 12:36 Patient arrived in ED. as 12:55 Chuck Reyes DO is Attending Physician. ms3 13:08 Triage completed. jd3 13:09 Arm band placed on. jd3 14:33 XRAY Chest (1 view) In Process Unspecified. EDMS 15:29 Noemi Hodges, RN is Primary Nurse. iw 15:44 Daniele Loera MD is Referral Physician. ms3 15:57 Patient has correct armband on for positive identification. Bed in low position. Call ww light in reach. 15:57 No provider procedures requiring assistance completed. IV discontinued, bleeding ww controlled, No redness/swelling at site. Pressure dressing applied. Administered Medications: 14:02 Drug: predniSONE 40 mg Route: PO; iw Medication: 15:57 VIS not applicable for this client. ww Outcome: 15:44 Discharge ordered by MD. ms3 15:57 Discharged to home ambulatory. ww 15:57 Condition: stable 15:57 Discharge instructions given to patient, Instructed on discharge instructions, follow up and referral plans. medication usage, Demonstrated understanding of instructions, follow-up care, medications, Prescriptions given X 1. 15:59 Patient left the ED. ww Signatures: Dispatcher [employer] EDMS Lyric Sargent as Noemi Hodges RN RN iw [place] RN RN j Chuck Reyes DO DO ms3 Alaina Burger RN RN ww Corrections: (The following items were deleted from the chart) 13:08 13:06 Chief complaint: jd3 jd3
[2021-11-01 16:04] VITALS: BP 125/66; TEMP 98.4; O2SAT 97
--- NOTE | 2021-11-02 09:10 | EKG ---
Test Date: 2021-11-01 Test Time: 15:21:19 [employer] Teacher: CATA MEASUREMENT RESULTS: Intervals: Rate: 68 DC: 166 QRSD: 90 QT: 412 QTc: 438 Blair: P: 62 DC: 166 QRS: 54 T: 40 INTERPRETIVE STATEMENTS: Normal sinus rhythm Normal ECG No previous ECG available for comparison Electronically Signed On 11-02-21 09:08:13 CDT by Singh Perkins
== END 2021-11-01 15:59 | disposition home or self-care (01) ==
LOC: ER 12:35
DX: J44.9 Chronic obstructive pulmonary disease, unspecified (principal); J45.909 Unspecified asthma, uncomplicated; Z87.891 Personal history of nicotine dependence
CPT/HCPCS: 93005; 85025; 80048; 36415; 84484; 71045; 99283; J7512